=== PATIENT | female | born 1930 | race Caucasian/White ===

== ENCOUNTER 2016-07-30 19:39 | Emergency (ER) | payer MEDICARE ==
[~2016-07-30] VITALS: Ht 152.4 cm; Wt 49.4 kg
[~2016-07-30 19:39] MED LIST: ACHD5005 PO; ASPI81TA16 PO; CALC-140 PO; CIPR500T78 PO; HYDR-3729 PO; LYSI500T37 PO; OMG1KC PO
[2016-07-30] MEDS ORDERED: RT-ALBUTEROL/IPRATROPIUM 3 ML (DUONEB) VIAL ONE (19:42)
[2016-07-30 19:56] LABS: MEAN CORPUSCULAR VOLUME 90 FL (80-99); RED BLOOD COUNT 4.85 10^6/uL (4.35-5.85); WHITE BLOOD COUNT 9.3 10^3/uL (4.3-11.0)
[2016-07-30 19:57] LABS: BASOPHILS % (AUTO) 0 % (0-10); EOSINOPHILS # (AUTO) 0.4 10^3/uL (0.0-0.3); EOSINOPHILS % (AUTO) 4 % (0-10); LYMPHOCYTES # (AUTO) 3.4 X 10^3 (1.0-4.0); LYMPHOCYTES % (AUTO) 37 % (12-44); MEAN CORPUSCULAR HEMOGLOBIN 31 PG (25-34); MEAN CORPUSCULAR HGB CONC 35 G/DL (32-36); MEAN PLATELET VOLUME 9.4 FL (7.4-10.4); MONOCYTES # (AUTO) 1.3 X 10^3 (0.0-1.0); MONOCYTES % (AUTO) 14 % (0-12); NEUTROPHILS # (AUTO) 4.2 X 10^3 (1.8-7.8); NEUTROPHILS % (AUTO) 45 % (42-75); PLATELET COUNT 290 10^3/uL (130-400); RED CELL DISTRIBUTION WIDTH 12.4 % (10.0-14.5)
[2016-07-30 20:00] LABS: PROTHROMBIN TIME PATIENT 12.5 SEC (12.2-14.7)
[2016-07-30] MEDS ORDERED: RT-ALBUTEROL/IPRATROPIUM 3 ML (DUONEB) VIAL INH ONE (20:00)
[2016-07-30 20:11] LABS: ALANINE AMINOTRANSFERASE 18 U/L (0-55); ALBUMIN 4.3 G/DL (3.2-4.5); ANION GAP 11 MMOL/L (5-14); ASPARTATE AMINO TRANSFERASE 24 U/L (5-34); BILIRUBIN,TOTAL 0.3 MG/DL (0.1-1.0); BLOOD UREA NITROGEN 14 MG/DL (7-18); BUN/CREATININE RATIO 19; CALCIUM 9.3 MG/DL (8.5-10.1); CARBON DIOXIDE 26 MMOL/L (21-32); CHLORIDE 105 MMOL/L (98-107); CREATINE KINASE 89 U/L (29-168); CREATININE SERUM 0.75 MG/DL (0.60-1.30); GFR ESTIMATED > 60; GLUCOSE 102 MG/DL (70-105); MAGNESIUM 2.3 MG/DL (1.8-2.4); POTASSIUM 4.3 MMOL/L (3.6-5.0); SODIUM 142 MMOL/L (135-145); TOTAL PROTEIN 7.4 G/DL (6.4-8.2)
[2016-07-30 20:13] LABS: BAND NEUTROPHILS 0 %; LYMPHOCYTES % (MANUAL) 39 %; NEUTROPHILS % (MANUAL) 47 %
[2016-07-30 20:14] LABS: BASOPHILS % (MANUAL) 0 %; EOSINOPHILS % (MANUAL) 5 %
[2016-07-30 20:18] LABS: TROPONIN I < 0.30 NG/ML (<0.30)
--- NOTE | 2016-07-30 20:33 | Diagnostic Imaging Report ---
INDICATION: Shortness of breath EXAMINATION: Chest 07/30/2016 COMPARISON: 06/08/2016 FINDINGS: The lungs are hyperinflated. There is a density in the right midlung peripherally consistent with calcified granuloma. The heart is slightly prominent. The pulmonary vasculature is unremarkable. No focal infiltrates or effusions are seen. There is no pneumothorax. IMPRESSION: 1. Chronic changes as described with findings of emphysematous disease noted. 2. Mild cardiomegaly. Dictated by: Dictated on workstation # [id number]
--- NOTE | 2016-07-30 20:53 | ED Respiratory ---
General Chief Complaint: Respiratory Problems Stated Complaint: SOA Nursing Triage Note: Pt to ER via POV with son. Reports went to lie down to sleep and suddenly felt SOA "could not get my breathe." Source: patient (VERY LIMITED HISTORIAN ABOUT PMH) History of Present Illness Time seen by provider: 19:45 Initial Comments PT C/O SHORTNESS OF BREATH WHEN SHE WAS LAYING DOWN AND TRYING TO GO TO SLEEP JUST PRIOR TO ARRIVAL HAS HAD A MILD NON-PRODUCTIVE COUGH, BUT STATES "NO WORSE THAN NORMAL" NO CHEST PAIN NO FEVER NO HEADACHE OR BODY ACHES NO KNOWN SICK CONTACTS PCP: DR. GURROLA Allergies and Home Medications Allergies Coded Allergies: No Known Drug Allergies (Verified , 12/17/15) Home Medications Cefdinir 300 Mg Capsule #20 300 MG PO BID Prescribed by: JENNIFER RESENDIZ on 07/30/162112 [place] 3 Polyunsat Fatty Acids 1,000 Mg Cap 1,000 MG PO DAILY (Reported) Constitutional: no symptoms reported EENTM: no symptoms reported Respiratory: see HPI cough orthopnea short of breath Cardiovascular: no symptoms reportedNo chest pain, No edema Gastrointestinal: no symptoms reported Genitourinary: no symptoms reported Musculoskeletal: no symptoms reported Skin: no symptoms reported Psychiatric/Neurological: No Symptoms Reported Hematologic/Lymphatic: No Symptoms Reported Immunological/Allergic: no symptoms reported Past Vjygkie-Nhcmzk-Plzoor Hx Patient Social History Alcohol Use: Denies Use Recreational Drug Use: No Smoking Status: Never a Smoker Recent Foreign Travel: No Contact w/Someone Who Travel: No Recent Infectious Disease Expo: No Recent Hopitalizations: No Physical Abuse Screen: No Sexual Abuse: No Immunizations Up To Date Date of Pneumonia Vaccine: Apr 10, 2015 Date of Influenza Vaccine: Apr 10, 2016 Seasonal Allergies Seasonal Allergies: No Surgeries HX Surgeries: Yes (RIGHT HEMICOLECTOMY AND SMALL BOWEL RESECTION FOR COLON CANCER; COLONOSOCPIES PER OLD CHART; PT HAS NO IDEA WHAT SURGERIES SHE HAS HAD OR WHAT FOR) Surgeries: Abdominal, Bowel Surgery Respiratory Hx Respiratory Disorders: No Cardiovascular Hx Cardiac Disorders: No Neurological Hx Neurological Disorders: No Reproductive System Hx Reproductive Disorders: No Sexually Transmitted Disease: No HIV/AIDS: No Genitourinary Hx Genitourinary Disorders: No Gastrointestinal Hx Gastrointestinal Disorders: Yes (HX COLON CA) Musculoskeletal Hx Musculoskeletal Disorders: No Endocrine Hx Endocrine Disorders: No HEENT HX ENT Disorders: Yes (wears glasses) HEENT Disorders: Cataract Cancer Hx Cancer: Yes (PT STATES SHE HAS HAD CANCER, BUT HAS ABSOLUTELY NO IDEA WHAT KIND OF CANCER SHE HAS HAD OR WHAT KIND OF SURGERY SHE HAD OR IF SHE HAD ANY OTHER TREATMENT FOR IT. COLON CANCER LISTED ON PRIOR RECORD. ) Cancer: Colon Psychosocial Hx Psychiatric Problems: No Integumentary HX Skin/Integumentary Disorder: No Blood Transfusions Hx Blood Disorders: No Family Medical History Family Medial History: Cardiovascular disease 19 MOTHER G8 BROTHER G8 SISTER Hypertension 19 FATHER 19 MOTHER G8 BROTHER G8 SISTER Respiratory disorder G8 BROTHER Physical Exam Vital Signs Vital Sign - Last 12Hours 07/30/16 07/30/16 07/30/16 19:40 19:41 21:20 Temp 97.2 Pulse 89 Resp 24 B/P 186/79 Pulse Ox 92 O2 Delivery Room Air O2 Flow Rate 2 FiO2 98 Capillary Refill : Less Than 3 Seconds General Appearance: WD/WN no apparent distress HEENT: PERRL/EOMI normal ENT inspection TMs normal pharynx normal Neck: non-tender full range of motion supple normal inspection Respiratory: no respiratory distress no accessory muscle use decreased breath sounds (IN RIGHT BASE) Cardiovascular: regular rate, rhythm no edema no JVD no murmur Gastrointestinal: normal bowel sounds non tender soft Extremities: normal inspection no pedal edema normal capillary refill Neurologic/Psychiatric: 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-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 nml as tested no motor/sensory deficits alert normal mood/affect oriented x 3 Skin: normal color warm/dry Progress/Results/Core Measures Results/Orders Lab Results Laboratory Tests Test 07/30/16 19:45 07/30/16 20:00 Range/Units Activated Partial Thromboplast Time 35 24-35 SEC Alanine Aminotransferase (ALT/SGPT) 18 0-55 U/L Albumin 4.3 3.2-4.5 G/DL Alkaline Phosphatase 65 40-136 U/L Anion Gap 11 5-14 MMOL/L Aspartate Amino Transf (AST/SGOT) 24 5-34 U/L B-Type Natriuretic Peptide 81.9 <100.0 PG/ML BUN/Creatinine Ratio 19 Band Neutrophils 0 % Basophils # (Auto) 0.0 0.0-0.1 10^3/uL Basophils % (Manual) 0 % Basophils (%) (Auto) 0 0-10 % Blood Morphology Comment NORMAL Blood Urea Nitrogen 14 7-18 MG/DL Calcium Level 9.3 8.5-10.1 MG/DL Carbon Dioxide Level 26 21-32 MMOL/L Chloride Level 105 98-107 MMOL/L Creatine Kinase MB 2.8 <6.6 NG/ML Creatinine 0.75 0.60-1.30 MG/DL Eosinophils # (Auto) 0.4 H 0.0-0.3 10^3/uL Eosinophils % (Manual) 5 % Eosinophils (%) (Auto) 4 0-10 % Estimat Glomerular Filtration Rate > 60 Glucose Level 102 70-105 MG/DL Hematocrit 43 35-52 % Hemoglobin 15.0 11.5-16.0 G/DL INR Comment 1.0 0.8-1.4 Lymphocytes # (Auto) 3.4 1.0-4.0 X 10^3 Lymphocytes % (Manual) 39 % Lymphocytes (%) (Auto) 37 12-44 % Magnesium Level 2.3 1.8-2.4 MG/DL Mean Corpuscular Hemoglobin 31 25-34 PG Mean Corpuscular Hemoglobin Concent 35 32-36 G/DL Mean Corpuscular Volume 90 80-99 FL Mean Platelet Volume 9.4 7.4-10.4 FL Monocytes # (Auto) 1.3 H 0.0-1.0 X 10^3 Monocytes % (Manual) 9 % Monocytes (%) (Auto) 14 H 0-12 % Neutrophils # (Auto) 4.2 1.8-7.8 X 10^3 Neutrophils % (Manual) 47 % Neutrophils (%) (Auto) 45 42-75 % Platelet Count 290 130-400 10^3/uL Potassium Level 4.3 3.6-5.0 MMOL/L Prothrombin Time 12.5 12.2-14.7 SEC Red Blood Count 4.85 4.35-5.85 10^6/uL Red Cell Distribution Width 12.4 10.0-14.5 % Sodium Level 142 135-145 MMOL/L Total Bilirubin 0.3 0.1-1.0 MG/DL Total Creatine Kinase 89 29-168 U/L Total Protein 7.4 6.4-8.2 G/DL Troponin I < 0.30 <0.30 NG/ML White Blood Count 9.3 4.3-11.0 10^3/uL Lactic Acid Level 1.0 0.5-2.0 MMOL/L Micro Results Microbiology 07/30/16 Influenza Types A,B Antigen (ERUM) - Final, Complete My Orders Orders-MITCH RESENDIZA Dania DO O2 (07/30/16 19:47) Cbc And Manual Diff (07/30/16 19:47) Comprehensive Metabolic Panel (07/30/16 19:47) Blood Culture (07/30/16 19:47) Monitor-Rhythm Ecg Trace Only (07/30/16 19:47) BNP (07/30/16 19:47) Creatine Kinase (07/30/16 19:47) Creatine Kinase Mb (07/30/16 19:47) Lactic Acid Analyzer (07/30/16 19:47) Magnesium (07/30/16 19:47) Protime With Inr (07/30/16 19:47) Partial Thromboplastin Time (07/30/16 19:47) Troponin I (07/30/16 19:47) Influenza A And B Antigens (07/30/16 19:47) Chest 1 View, Ap/Pa Only (07/30/16 19:47) Albuterol/Ipra Inhalation Soln (Duoneb I (07/30/16 20:00) Rt Request For Service (07/30/16 19:47) Svn Sm Volume Nebulizer Rt-Rfs (07/30/16 19:47) Albuterol/Ipra Inhalation Soln (Duoneb I (07/30/16 19:42) Ceftriaxone Injection (Rocephin Injectio (07/30/16 21:15) Rx-Albuterol Inhaler (Rx-Ventolin Hfa) (07/30/16 21:06) Rt Request For Service (07/30/16 21:07) Rx-Albuterol Inhaler (Rx-Proair) (07/30/16 21:10) Medications Given in ED Current Medications Medications Dose Ordered Sig/Katie Route Start Time Stop Time Status Last Admin Dose Admin Albuterol Sulfate 8 gm STK-MED ONCE IH 07/30/16 21:10 07/30/16 21:18 DC 07/30/16 21:31 8 GM Albuterol/ Ipratropium 3 ml 3 ml STK-MED ONCE .ROUTE 07/30/16 19:42 07/30/16 19:51 DC 07/30/16 19:55 3 ML Ceftriaxone Sodium/Sodium Chloride 50 ml @ 100 mls/hr ONCE ONCE IV 07/30/16 21:15 07/30/16 21:44 DC 07/30/16 21:31 100 MLS/HR Vital Signs/I&O Vital Sign - Last 12Hours 07/30/16 07/30/16 07/30/16 07/30/16 19:40 19:41 19:50 21:20 Temp 97.2 Pulse 89 Resp 24 B/P 186/79 Pulse Ox 92 99 O2 Delivery Room Air Nasal Cannula Nasal Cannula Nasal Cannula O2 Flow Rate 2 2 2 FiO2 98 Blood Pressure Mean: 114 Progress Note : Progress Note STATES SHE IS MUCH BETTER AFTER NEBULIZER TREATMENT EXAM--NOW HAS RALES IN RLL, WITH INCREASED AERATION IN ALL LUNG EMANUEL NO COUGH NOTED AT ANY TIME PT FEELS COMFORTABLE GOING HOME Diagnostic Imaging Comments CXR--CHRONIC CHANGES, NO ACUTE PROCESS--PER RADIOLOGIST REPORT @ 2048 Reviewed: Reviewed by Me Departure Impression Impression: Primary Impression: Acute bronchitis Additional Impression: POSSIBLE PNEUMONIA Disposition: HOME, SELF-CARE Condition: Improved Departure-Patient Inst. Referrals: LUIS BAILON MD (PCP) Primary Care Physician Patient Instructions: Acute Bronchitis, Adult (DC) Add. Discharge Instructions: ROBITUSSIN DM FOR COUGH TYLENOL AND MOTRIN NEEDED FOR PAIN OR FEVER USE INHALER WITH SPACER EVERY 4 HOURS NEEDED FOR BREATHING FOLLOW UP WITH DR. GURROLA ON TUESDAY RETURN TO ER IF WORSE All discharge instructions reviewed with patient and/or family. Voiced understanding. Scripts Cefdinir 300 Mg Recaxiw634 Mg PO BID FOR INFECTION #20 CAP Prov:JENNIFER RESENDIZ DO 07/30/16 JENNIFER RESENDIZ DO Jul 30, 2016 20:53
[2016-07-30] MEDS ORDERED: RX-ALBUTEROL INHALER (VENTOLIN HFA) 18 GM IH STA (21:06)
[2016-07-30] MEDS ORDERED: RX-ALBUTEROL INHALER (PROAIR) 8 GM IH ONE (21:10)
[2016-07-30] MEDS ORDERED: CEFD300C3 PO (21:13)
[2016-07-30] MEDS ORDERED: cefTRIAXone INJECTION 1,000 MG in NORMAL SALINE (BAXTER MINI) 50 ML IV ONE (21:15)
[2016-07-30 21:48] VITALS: BP 172/73
== END 2016-07-30 21:48 | disposition home or self-care (01) ==
LOC: EDUNIT# 19:39 → ER 19:40
DX: J20.9 Acute bronchitis, unspecified (principal); Z85.038 Personal history of other malignant neoplasm of large intestine
CPT/HCPCS: 36415; 71010; 80053; 82550; 82553; 83605; 83735; 83880; 84484; 85007; 85027; 85610; 85730; 87040; 87804; 93041; 94640; 94664; 96374

== ENCOUNTER 2017-04-29 20:27 | Emergency (ER) | payer MEDICARE ==
[~2017-04-29] VITALS: Ht 152.4 cm; Wt 49.4 kg
[~2017-04-29 20:27] MED LIST changes: +CEFD300C3 PO
[2017-04-29] MEDS ORDERED: RT-ALBUTEROL/IPRATROPIUM 3 ML (DUONEB) VIAL INH ONE (20:45)
[2017-04-29] MEDS ORDERED: methylPREDNISolone 125 MG (Solu-MEDROL) VIAL IVP ONE (20:45)
[2017-04-29 20:49] LABS: BASOPHILS % (AUTO) 0 % (0-10); EOSINOPHILS # (AUTO) 0.4 10^3/uL (0.0-0.3); EOSINOPHILS % (AUTO) 4 % (0-10); LYMPHOCYTES # (AUTO) 4.6 X 10^3 (1.0-4.0); LYMPHOCYTES % (AUTO) 54 % (12-44); MEAN CORPUSCULAR HEMOGLOBIN 30 PG (25-34); MEAN CORPUSCULAR HGB CONC 33 G/DL (32-36); MEAN CORPUSCULAR VOLUME 89 FL (80-99); MEAN PLATELET VOLUME 9.5 FL (7.4-10.4); MONOCYTES % (AUTO) 12 % (0-12); NEUTROPHILS # (AUTO) 2.6 X 10^3 (1.8-7.8); NEUTROPHILS % (AUTO) 30 % (42-75); PLATELET COUNT 267 10^3/uL (130-400); RED BLOOD COUNT 4.71 10^6/uL (4.35-5.85); RED CELL DISTRIBUTION WIDTH 12.5 % (10.0-14.5); WHITE BLOOD COUNT 8.6 10^3/uL (4.3-11.0)
[2017-04-29 21:02] LABS: PROTHROMBIN TIME PATIENT 13.2 SEC (12.2-14.7)
[2017-04-29 21:10] LABS: ALANINE AMINOTRANSFERASE 19 U/L (0-55); ALBUMIN 4.1 GM/DL (3.2-4.5); ANION GAP 10 MMOL/L (5-14); ASPARTATE AMINO TRANSFERASE 23 U/L (5-34); BILIRUBIN,TOTAL 0.6 MG/DL (0.1-1.0); BLOOD UREA NITROGEN 17 MG/DL (7-18); BUN/CREATININE RATIO 22; CALCIUM 9.3 MG/DL (8.5-10.1); CARBON DIOXIDE 26 MMOL/L (21-32); CHLORIDE 104 MMOL/L (98-107); CREATINE KINASE 84 U/L (29-168); CREATININE SERUM 0.76 MG/DL (0.60-1.30); GFR ESTIMATED > 60; GLUCOSE 112 MG/DL (70-105); MAGNESIUM 2.1 MG/DL (1.8-2.4); POTASSIUM 3.9 MMOL/L (3.6-5.0); SODIUM 140 MMOL/L (135-145); TOTAL PROTEIN 7.3 GM/DL (6.4-8.2)
[2017-04-29 21:17] LABS: TROPONIN I < 0.30 NG/ML (<0.30)
--- NOTE | 2017-04-29 21:41 | Diagnostic Imaging Report ---
INDICATION: Shortness of breath. TECHNIQUE: Single view chest 9:07 PM. CORRELATION STUDY: 07/30/2016 FINDINGS: Heart size enlarged. Vasculature is within normal limits. Chronic, senescent type changes about the lung parenchyma. Likely areas of mild fibrosis. Calcified granuloma of the lateral right midlung. No infiltrate. IMPRESSION: 1. Chronic changes of the lung alvarenga. No acute cardiopulmonary abnormality. Borderline heart size without failure. Dictated by: Dictated on workstation # [id number]
--- NOTE | 2017-04-29 22:25 | ED Respiratory ---
General Chief Complaint: Respiratory Problems Stated Complaint: SOB Nursing Triage Note: PT BROUGHT IN BY [facility] WITH C/O SUDDEN ONSET SOA. SHE REPORTS SHE WAS TRYING TO MAKE MUFFINS THIS EVENING WHEN SHE BURNED THEM. HER HOUSE WAS FILLED WITH SMOKE, AND SHE STAYED IN THE HOUSE FOR APPROX 3 HOURS BREATHING THE SMOKE. PT DENIES ANY CP. Allergies and Home Medications Allergies Coded Allergies: No Known Drug Allergies (Verified , 12/17/15) Home Medications Cefdinir 300 Mg Capsule, 300 MG PO BID, #20 Prescribed by: JENNIFER RESENDIZ on 07/30/162112 [place] 3 Polyunsat Fatty Acids 1,000 Mg Cap, 1,000 MG PO DAILY, (Reported) Past Mcwaslj-Awljwj-Cusvio Hx Patient Social History Alcohol Use: Denies Use Recreational Drug Use: No Smoking Status: Never a Smoker 2nd Hand Smoke Exposure: No Recent Foreign Travel: No Contact w/Someone Who Travel: No Recent Infectious Disease Expo: No Recent Hopitalizations: No Physical Abuse: No Sexual Abuse: No Immunizations Up To Date Date of Pneumonia Vaccine: Apr 10, 2015 Date of Influenza Vaccine: Apr 10, 2016 Seasonal Allergies Seasonal Allergies: No Surgeries History of Surgeries: Yes Surgeries: Abdominal, Bowel Surgery Respiratory History of Respiratory Disorde: No Cardiovascular History of Cardiac Disorders: No Neurological History of Neurological Disord: No Reproductive System Hx Reproductive Disorders: No Sexually Transmitted Disease: No HIV/AIDS: No Gastrointestinal History of Gastrointestinal Di: Yes (HX COLON CA) Musculoskeletal History of Musculoskeletal Dis: No Endocrine History of Endocrine Disorders: No HEENT HEENT Disorders: Cataract Cancer History of Cancer: Yes Cancer: Colon Psychosocial History of Psychiatric Problem: No Suicide Risk Score: 0 Integumentary History of Skin or Integumenta: No Blood Transfusions History of Blood Disorders: No Family Medical History Family Medial History: Cardiovascular disease 19 MOTHER G8 BROTHER G8 SISTER Hypertension 19 FATHER 19 MOTHER G8 BROTHER G8 SISTER Respiratory disorder G8 BROTHER Physical Exam Vital Signs Vital Sign - Last 12Hours 04/29/17 20:27 Temp 97.9 Pulse 79 Resp 19 B/P (MAP) 110/54 Pulse Ox 97 O2 Delivery Room Air Capillary Refill : Less Than 3 Seconds Progress/Results/Core Measures Results/Orders Lab Results Laboratory Tests Test 04/29/17 20:26 04/29/17 20:36 Range/Units White Blood Count 8.6 4.3-11.0 10^3/uL Red Blood Count 4.71 4.35-5.85 10^6/uL Hemoglobin 14.0 11.5-16.0 G/DL Hematocrit 42 35-52 % Mean Corpuscular Volume 89 80-99 FL Mean Corpuscular Hemoglobin 30 25-34 PG Mean Corpuscular Hemoglobin Concent 33 32-36 G/DL Red Cell Distribution Width 12.5 10.0-14.5 % Platelet Count 267 130-400 10^3/uL Mean Platelet Volume 9.5 7.4-10.4 FL Neutrophils (%) (Auto) 30 L 42-75 % Lymphocytes (%) (Auto) 54 H 12-44 % Monocytes (%) (Auto) 12 0-12 % Eosinophils (%) (Auto) 4 0-10 % Basophils (%) (Auto) 0 0-10 % Neutrophils # (Auto) 2.6 1.8-7.8 X 10^3 Lymphocytes # (Auto) 4.6 H 1.0-4.0 X 10^3 Monocytes # (Auto) 1.0 0.0-1.0 X 10^3 Eosinophils # (Auto) 0.4 H 0.0-0.3 10^3/uL Basophils # (Auto) 0.0 0.0-0.1 10^3/uL Prothrombin Time 13.2 12.2-14.7 SEC INR Comment 1.0 0.8-1.4 Activated Partial Thromboplast Time 30 24-35 SEC Sodium Level 140 135-145 MMOL/L Potassium Level 3.9 3.6-5.0 MMOL/L Chloride Level 104 98-107 MMOL/L Carbon Dioxide Level 26 21-32 MMOL/L Anion Gap 10 5-14 MMOL/L Blood Urea Nitrogen 17 7-18 MG/DL Creatinine 0.76 0.60-1.30 MG/DL Estimat Glomerular Filtration Rate > 60 BUN/Creatinine Ratio 22 Glucose Level 112 H 70-105 MG/DL Calcium Level 9.3 8.5-10.1 MG/DL Magnesium Level 2.1 1.8-2.4 MG/DL Total Bilirubin 0.6 0.1-1.0 MG/DL Aspartate Amino Transf (AST/SGOT) 23 5-34 U/L Alanine Aminotransferase (ALT/SGPT) 19 0-55 U/L Alkaline Phosphatase 56 40-136 U/L Total Creatine Kinase 84 29-168 U/L Creatine Kinase MB 2.0 <6.6 NG/ML Troponin I < 0.30 <0.30 NG/ML B-Type Natriuretic Peptide 74.0 <100.0 PG/ML Total Protein 7.3 6.4-8.2 GM/DL Albumin 4.1 3.2-4.5 GM/DL My Orders Orders - JENNIFER RESENDIZ DO Saline Lock/Iv-Start (04/29/17 20:39) Ekg Tracing (04/29/17 20:39) O2 (04/29/17 20:39) Monitor-Rhythm Ecg Trace Only (04/29/17 20:39) BNP (04/29/17 20:39) Cbc With Automated Diff (04/29/17 20:39) Protime With Inr (04/29/17 20:39) Partial Thromboplastin Time (04/29/17 20:39) Chest 1 View, Ap/Pa Only (04/29/17 20:39) Albuterol/Ipra Inhalation Soln (Duoneb I (04/29/17 20:45) Rt Request For Service (04/29/17 20:39) Svn Sm Volume Nebulizer Rt-Rfs (04/29/17 20:39) Methylprednisolone Sod Succ (Solu-Medrol (04/29/17 20:45) Creatine Kinase (04/29/17 20:49) Creatine Kinase Mb (04/29/17 20:49) Comprehensive Metabolic Panel (04/29/17 20:49) Magnesium (04/29/17 20:49) Troponin I (04/29/17 20:49) Medications Given in ED Current Medications Medications Dose Ordered Sig/Katie Route Start Time Stop Time Status Last Admin Dose Admin Albuterol/ Ipratropium 3 ml ONCE ONCE INH 04/29/17 20:45 04/29/17 20:46 DC 04/29/17 20:45 3 ML Methylprednisolone Sodium Succinate 125 mg ONCE ONCE IVP 04/29/17 20:45 04/29/17 20:46 DC 04/29/17 21:15 125 MG Vital Signs/I&O Vital Sign - Last 12Hours 04/29/17 04/29/17 20:27 20:45 Temp 97.9 Pulse 79 Resp 19 B/P (MAP) 110/54 Pulse Ox 97 96 O2 Delivery Room Air Room Air Blood Pressure Mean: 72 Departure Impression Impression: Primary Impression: DYSPNEA AND BRONCHOSPASM DUE TO SMOKE INHALATION Disposition: HOME, SELF-CARE Condition: Stable Departure-Patient Inst. Referrals: JODEE GURROLA DO (PCP/Family) Primary Care Physician Patient Instructions: BRONCHOSPASM-ADULT, Smoke Inhalation (DC) Add. Discharge Instructions: DO NOT RETURN TO YOUR HOME UNTIL ALL TRACES OF SMOKE ARE GONE FOLLOW UP WITH DR. GURROLA ON TUESDAY FOR FURTHER CARE RETURN TO ER IF WORSE All discharge instructions reviewed with patient and/or family. Voiced understanding. JENNIFER RESENDIZ DO Apr 29, 2017 22:25
[2017-04-29 22:45] VITALS: BP 110/54
== END 2017-04-29 22:45 | disposition home or self-care (01) ==
LOC: ER 20:27 → EDUNIT# 20:27 → ER 22:45
DX: J68.9 Unspecified respiratory condition due to chemicals, gases, fumes and vapors (principal); J98.01 Acute bronchospasm; Z85.038 Personal history of other malignant neoplasm of large intestine; Z82.49 Family history of ischemic heart disease and other diseases of the circulatory system
CPT/HCPCS: 36415; 71010; 80053; 82550; 82553; 83735; 83880; 84484; 85025; 85610; 85730; 93005; 93041; 94640; 96374

== ENCOUNTER → 2017-06-30 | Outpatient (CLI) | payer MEDICARE ==
--- NOTE | 2017-06-30 10:28 | Diagnostic Imaging Report ---
INDICATION: Shortness of breath. EXAMINATION: PA and lateral chest obtained at 10:14 a.m. and compared with 04/29/2017. FINDINGS: Heart is normal in size. There is hyperinflation compatible with COPD. There is no focal infiltrate or pneumothorax or pleural fluid. There is a stable calcified granuloma in the right midlung. IMPRESSION: COPD changes. No focal infiltrate or pneumothorax or pleural fluid. Dictated by: Dictated on workstation # [id number]
== END ==
LOC: RAD 09:43
PROVIDERS: ATTEND Nurse Practitioner Family
DX: J44.9 Chronic obstructive pulmonary disease, unspecified (principal)
CPT/HCPCS: 71020

== ENCOUNTER 2018-08-22 10:31 | Observation (INO) | payer MEDICARE ==
[~2018-08-22] VITALS: Ht 152.4 cm; Wt 49.4 kg
--- OUTSIDE RECORDS SUMMARY | 2018-08-22 10:38 | XMS REPORT | Continuity of Care Document ---
Author Author [facility] Organization [facility] Address Unknown Phone Unavailable Allergies Active Description Code Type Severity Reaction Onset Reported/Identified Relationship to Patient Clinical Status Yes No Known Drug Allergies [id number] Drug Allergy Unknown N/A 12/17/2015 Medications There is no data. Problems Date Dx Coded Attending Type Code Diagnosis Diagnosed By 05/18/2013 ISIDORO CANTRELL Ot 826.0 FX PHALANX, FOOT-CLOSED 05/18/2013 ISIDORO CANTRELL Ot 924.20 CONTUSION OF FOOT 05/18/2013 ISIDORO CANTRELL Ot 959.7 LOWER LEG INJURY NOS 05/18/2013 ISIDORO CANTRELL Ot E000.8 OTHER EXTERNAL CAUSE STATUS 05/18/2013 ISIDORO CANTRELL Ot E849.0 ACCIDENT IN HOME 05/18/2013 ISIDORO CANTRELL Ot E916 STRUCK BY FALLING OBJECT 12/06/2014 DANIEL CABA MD Ot 153.4 12/06/2014 ROSALES PONCE, DANIEL Ot 197.4 12/06/2014 ROSALES PONCE, DANIEL Ot 197.6 12/06/2014 ROSALES PONCE, DANIEL Ot 285.9 12/06/2014 ROSALES PONCE, DANIEL Ot 287.49 12/06/2014 ROSALES PONCE, DANIEL Ot V10.44 12/06/2014 ROSALES PONCE, DANIEL Ot 153.4 12/06/2014 ROSALES PONCE, ERICKI Ot 197.4 12/06/2014 ROSALES PONCE, ERICKI Ot 197.6 12/06/2014 ROSALES PONCE, DANIEL Ot 285.9 12/06/2014 ROSALES PONCE, DERECKAABÁRBARA Ot 287.49 12/06/2014 ROSALES PONCE, DERECKAAKI Ot V10.44 12/09/2014 DANIEL CABA MD Ot 153.4 12/09/2014 DANIEL CABA MD Ot 197.4 12/09/2014 ROSALES PONCE, DANIEL Ot 197.6 12/09/2014 ROSALES PONCE, DANIEL Ot 285.9 12/09/2014 ROSALES PONCE, DANIEL Ot 287.49 12/09/2014 ROSALES PONCE, DANIEL Ot V10.44 12/09/2014 ROSALES PONCE, DANIEL Ot 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 12/09/2014 ROSALES PONCE, DANIEL Ot 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 12/09/2014 ROSALES PONCE, DANIEL Ot 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 12/09/2014 ROSALES PONCE, DANIEL Ot 285.9 ANEMIA NOS 12/09/2014 ROSALES PONCE, DANIEL Ot 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 12/09/2014 ROSALES PONCE, DANIEL Ot 401.9 HYPERTENSION NOS 12/09/2014 ROSALES PONCE, DANIEL Ot 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 12/23/2014 ROSALES PONCE, DANIEL Ot 569.9 12/23/2014 ROSALES PONCE, DANIEL Ot 791.9 12/23/2014 ROSALES PONCE, DANIEL Ot V72.63 12/23/2014 ROSALES PONCE, ERICKI Ot V72.83 12/23/2014 ROSALES PONCE, DANIEL Ot V74.8 01/13/2015 SHANIQUE OPNCE, KRISTINA K Ot 153.4 01/13/2015 SHANIQUE PONCE, KRISTINA K Ot 238.71 01/13/2015 SHANIQUE PONCE, KRISTINA K Ot 280.9 01/13/2015 SHANIQUE PONCE, KRISTINA K Ot 515 01/13/2015 SHANIQUE PONCE, KRISTINA K Ot V12.01 01/13/2015 SHANIQUE PONCE, KRISTINA K Ot V58.69 01/23/2015 SHANIQUE PONCE, KRISTINA K Ot 153.4 01/23/2015 SHANIQUE PONCE, KRISTINA K Ot 238.71 01/23/2015 SHANIQUE PONCE, KRISTINA K Ot 280.9 01/23/2015 SHANIQUE PONCE, KRISTINA K Ot 515 01/23/2015 SHANIQUE PONCE, KRISTINA K Ot V12.01 01/23/2015 SHANIQUE PONCE, KRISTINA K Ot V58.69 03/24/2015 SHANIQUE PONCE, KRISTINA K Ot 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 03/24/2015 SHANIQUE PONCE, KRISTINA K Ot 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 03/24/2015 KRISTINA BAY MD Ot 280.9 IRON DEFIC ANEMIA NOS 03/24/2015 SHANIQUE PONCE, KRISTINA Najera Ot 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 03/24/2015 KRISTINA BAY MD Ot V12.01 PERSONAL HISTORY OF TUBERCULOSIS 03/24/2015 KRISTINA BAY MD Ot V58.69 OTH MED,LT,CURRENT USE 12/16/2015 DANIEL CABA MD, Ot Z01.818 ENCOUNTER FOR OTHER PREPROCEDURAL EXAMIN 12/16/2015 DANIEL CABA MD, Ot Z85.038 PERSONAL HISTORY OF MALIGNANT NEOPLASM O 12/17/2015 DANIEL CABA MD, Ot Z01.818 ENCOUNTER FOR OTHER PREPROCEDURAL EXAMIN 12/17/2015 DANIEL CABA MD, Ot Z85.038 PERSONAL HISTORY OF MALIGNANT NEOPLASM O 12/17/2015 KRISTINA BAY MD Ot 153.4 12/17/2015 KRISTINA BAY MD Ot 238.71 12/17/2015 KRISTINA BAY MD Ot 280.9 12/17/2015 SHANIQUE PONCE KRISTINA Dania Ot 515 12/17/2015 SHANIQUE PONCE KRISTINA Dania Ot V12.01 12/17/2015 SHANIQUE PONCE KRISTINA Dania Ot V58.69 12/17/2015 DANIEL CABA MD, Ot K57.90 DVRTCLOS OF INTEST, PART UNSP, W/O PERF 12/17/2015 DANIEL CABA MD, Ot K64.1 SECOND DEGREE HEMORRHOIDS 12/17/2015 DANIEL CABA MD, Ot Z08 ENCNTR FOR FOLLOW-UP EXAM AFTER TRTMT FO 12/17/2015 DANIEL CABA MD, Ot Z85.038 PERSONAL HISTORY OF MALIGNANT NEOPLASM O 12/23/2015 DANIEL CABA MD, Ot K57.90 DVRTCLOS OF INTEST, PART UNSP, W/O PERF 12/23/2015 DANIEL CABA MD, Ot K64.1 SECOND DEGREE HEMORRHOIDS 12/23/2015 DANIEL CABA MD, Ot Z08 ENCNTR FOR FOLLOW-UP EXAM AFTER TRTMT FO 12/23/2015 DANIEL CABA MD, Ot Z85.038 PERSONAL HISTORY OF MALIGNANT NEOPLASM O 06/08/2016 Ot 789.00 ABDOMINAL PAIN, UNSPECIFIED SITE 06/08/2016 Ot 959.12 OTH INJURY OF ABDOMEN 06/08/2016 Ot E000.8 OTHER EXTERNAL CAUSE STATUS 06/08/2016 Ot E849.0 ACCIDENT IN HOME 06/08/2016 Ot E888.9 FALL NOS 06/08/2016 DANIEL CABA MD Ot 569.9 INTESTINAL DISORDER NOS 06/08/2016 DANIEL CABA MD Ot 791.9 ABN URINE FINDINGS NEC 06/08/2016 DANIEL CABA MD Ot V72.63 PRE-PROCEDURAL LABORATORY EXAMINATION 06/08/2016 DANIEL CABA MD Ot V72.83 EXAM PRE-OPERATIVE NEC 06/08/2016 DANIEL CABA MD Ot V74.8 SCREEN-BACTERIAL DIS NEC 06/08/2016 SHANIQUE PONCE, KRISTINA Najera Ot 153.4 06/08/2016 SHANIQUE PONCE, KRISTINA Najera Ot 238.71 06/08/2016 SHANIQUE PONCE, KRISTINA Najera Ot 280.9 06/08/2016 SHANIQUE PONCE, KRISTINA Najera Ot 515 06/08/2016 SHANIQUE PONCE, KRISTINA Dania Ot V12.01 06/08/2016 SHANIQUE PONCE, KRISTINA Dania Ot V58.69 06/09/2016 DENIS CHAWLA MANAGER FLEET Ot R07.9 CHEST PAIN, UNSPECIFIED 06/17/2016 DENIS CHAWLA MANAGER FLEET Ot R07.9 CHEST PAIN, UNSPECIFIED 07/30/2016 JENNIFER RESENDIZ DO Ot J20.9 ACUTE BRONCHITIS, UNSPECIFIED 07/30/2016 JENNIFER RESENDIZ DO Ot R06.02 SHORTNESS OF BREATH 07/30/2016 JENNIFER RESENDIZ DO Ot Z85.038 PERSONAL HISTORY OF MALIGNANT NEOPLASM O 08/02/2016 JENNIFER RESENDIZ DO Ot J20.9 ACUTE BRONCHITIS, UNSPECIFIED 08/02/2016 JENNIFER RESENDIZ DO Ot R06.02 SHORTNESS OF BREATH 08/02/2016 JENNIFER RESENDIZ DO Ot Z85.038 PERSONAL HISTORY OF MALIGNANT NEOPLASM O 04/29/2017 JENNIFER RESENDIZ DO Ot J68.9 UNSP RESP COND DUE TO CHEMICALS, GASES, 04/29/2017 JENNIFER RESENDIZ DO Ot J98.01 ACUTE BRONCHOSPASM 04/29/2017 JENNIFER RESENDIZ DO Ot R06.02 SHORTNESS OF BREATH 04/29/2017 JENNIFER RESENDIZ DO Ot Z82.49 FAMILY HX OF ISCHEM HEART DIS AND OTH DI 04/29/2017 JENNIFER RESENDIZ DO Ot Z85.038 PERSONAL HISTORY OF MALIGNANT NEOPLASM O 05/02/2017 JENNIFER RESENDIZ DO Ot J68.9 UNSP RESP COND DUE TO CHEMICALS, GASES, 05/02/2017 JENNIFER RESENDIZ DO Ot J98.01 ACUTE BRONCHOSPASM 05/02/2017 JENNIFER RESENDIZ DO Ot R06.02 SHORTNESS OF BREATH 05/02/2017 JENNIFER RESENDIZ DO Ot Z82.49 FAMILY HX OF ISCHEM HEART DIS AND OTH DI 05/02/2017 JENNIFER RESENDIZ DO Ot Z85.038 PERSONAL HISTORY OF MALIGNANT NEOPLASM O 07/13/2017 EDI CHANDLER APRN Ot J44.9 CHRONIC OBSTRUCTIVE PULMONARY DISEASE, U 11/04/2017 ROSALES PONCE, DANIEL Ot 569.9 INTESTINAL DISORDER NOS 11/04/2017 ROSALES PONCE, DANIEL Ot 791.9 ABN URINE FINDINGS NEC 11/04/2017 DANIEL CABA MD Ot V72.63 PRE-PROCEDURAL LABORATORY EXAMINATION 11/04/2017 DANIEL CABA MD Ot V72.83 EXAM PRE-OPERATIVE NEC 11/04/2017 ROSALES PONCE, DANIEL Ot V74.8 SCREEN-BACTERIAL DIS NEC 11/04/2017 SHANIQUE PONCE, KRISTINA Najera Ot 153.4 11/04/2017 SHANIQUE PONCE, KRISTINA Najera Ot 238.71 11/04/2017 SHANIQUE PONCE, KRISTINA Najera Ot 280.9 11/04/2017 SHANIQUE PONCE, KRISTINA Najera Ot 515 11/04/2017 SHANIQUE PONCE, KRISTINA Najera Ot V12.01 11/04/2017 SHANIQUE PONCE, KRISTINA Najera Ot V58.69 11/04/2017 DENIS CHAWLA MANAGER FLEET Ot R07.9 CHEST PAIN, UNSPECIFIED 11/04/2017 EDI CHANDLER APRN Ot J44.9 CHRONIC OBSTRUCTIVE PULMONARY DISEASE, U 11/09/2017 JODEE GURROLA DO S Ot I67.81 ACUTE CEREBROVASCULAR INSUFFICIENCY 11/09/2017 JODEE GURROLA DO S Ot I67.82 CEREBRAL ISCHEMIA 11/18/2017 JODEE GURROLA DO S Ot I67.81 ACUTE CEREBROVASCULAR INSUFFICIENCY 11/18/2017 JODEE GURROLA DO S Ot I67.82 CEREBRAL ISCHEMIA Procedures Code Description Performed By Performed On 38.93 VENOUS CATHETERIZATION NEC 12/05/2014 45.62 PART SM BOWEL RESECT NEC 12/05/2014 45.73 OPEN AND OTHER RIGHT HEMICOLECTOMY 12/05/2014 45.93 [id number] BOWEL NEC 12/05/2014 Results Test Result Range Serum or plasma troponin i.cardiac measurement (mass/volume) - 06/08/16 12:00 Serum or plasma troponin i.cardiac measurement (mass/volume) < ng/ mL <0.30 PT panel in platelet poor plasma by coagulation assay - 07/30/16 19:45 Prothrombin time (PT) in platelet poor plasma by coagulation assay 12.5 s 12.2-14.7 INR in platelet poor plasma or blood by coagulation assay 1.0 0.8-1.4 Activated partial thromboplastin time (aPTT) in platelet poor plasma bycoagulation assay - 07/30/16 19:45 Activated partial thromboplastin time (aPTT) in platelet poor plasma bycoagulation assay 35 s 24-35 Comprehensive metabolic panel - 07/30/16 19:45 Serum or plasma sodium measurement (moles/volume) 142 mmol/L 135-145 Serum or plasma potassium measurement (moles/volume) 4.3 mmol/L 3.6-5.0 Serum or plasma chloride measurement (moles/volume) 105 mmol/L 98-107 Carbon dioxide 26 mmol/L 21-32 Serum or plasma anion gap determination (moles/volume) 11 mmol/L 5-14 Serum or plasma urea nitrogen measurement (mass/volume) 14 mg/dL 7-18 Serum or plasma creatinine measurement (mass/volume) 0.75 mg/dL 0.60-1.30 Serum or plasma urea nitrogen/creatinine mass ratio 19 NRG Serum or plasma creatinine measurement with calculation of estimated glomerular filtration rate > NRG Serum or plasma glucose measurement (mass/volume) 102 mg/dL 70-105 Serum or plasma calcium measurement (mass/volume) 9.3 mg/dL 8.5-10.1 Serum or plasma total bilirubin measurement (mass/volume) 0.3 mg/dL 0.1-1.0 Serum or plasma alkaline phosphatase measurement (enzymatic activity/volume) 65 U/L 40-136 Serum or plasma aspartate aminotransferase measurement (enzymatic activity/ volume) 24 U/L 5-34 Serum or plasma alanine aminotransferase measurement (enzymatic activity/volume ) 18 U/L 0-55 Serum or plasma protein measurement (mass/volume) 7.4 g/dL 6.4-8.2 Serum or plasma albumin measurement (mass/volume) 4.3 g/dL 3.2-4.5 Magnesium - 07/30/16 19:45 Magnesium 2.3 mg/dL 1.8-2.4 Serum or plasma creatine kinase measurement (enzymatic activity/volume) - 07/30 19:45 Serum or plasma creatine kinase measurement (enzymatic activity/volume) 89 U/L 29-168 Blood CBC with ordered manual differential panel - 07/30/16 19:45 Blood leukocytes automated count (number/volume) 9.3 10*3/uL 4.3-11.0 Blood erythrocytes automated count (number/volume) 4.85 10*6/uL 4.35-5.85 Venous blood hemoglobin measurement (mass/volume) 15.0 g/dL 11.5-16.0 Blood hematocrit (volume fraction) 43 % 35-52 Automated erythrocyte mean corpuscular volume 90 [foz_us] 80-99 Automated erythrocyte mean corpuscular hemoglobin (mass per erythrocyte) 31 pg 25-34 Automated erythrocyte mean corpuscular hemoglobin concentration measurement ( mass/volume) 35 g/dL 32-36 Automated erythrocyte distribution width ratio 12.4 % 10.0-14.5 Automated blood platelet count (count/volume) 290 10*3/uL 130-400 Automated blood platelet mean volume measurement 9.4 [foz_us] 7.4-10.4 Automated blood neutrophils/100 leukocytes 45 % 42-75 Automated blood lymphocytes/100 leukocytes 37 % 12-44 Blood monocytes/100 leukocytes 9 % NRG Automated blood eosinophils/100 leukocytes 4 % 0-10 Automated blood basophils/100 leukocytes 0 % 0-10 Blood neutrophils automated count (number/volume) 4.2 10*3 1.8-7.8 Blood lymphocytes automated count (number/volume) 3.4 10*3 1.0-4.0 Blood monocytes automated count (number/volume) 1.3 10*3 0.0-1.0 Automated eosinophil count 0.4 10*3/uL 0.0-0.3 Automated blood basophil count (count/volume) 0.0 10*3/uL 0.0-0.1 Manual blood segmented neutrophils/100 leukocytes 47 % NRG Blood band neutrophils/100 leukocytes 0 % NR Manual blood lymphocytes/100 leukocytes 39 % NR Manual eosinophils/100 leukocytes in nose 5 % NR Manual blood basophils/100 leukocytes 0 % [facility] Blood erythrocyte morphology finding identification NORMAL NRG Serum or plasma creatine kinase MB measurement (enzymatic activity/volume) - 19:45 Serum or plasma creatine kinase MB measurement (enzymatic activity/volume) 2.8 ng/mL <6.6 Serum or plasma troponin i.cardiac measurement (mass/volume) - 07/30/16 19:45 Serum or plasma troponin i.cardiac measurement (mass/volume) < ng/ mL <0.30 Serum or plasma lithium measurement (moles/volume) - 07/30/16 19:45 BNP level 81.9 pg/mL <100.0 Influenza virus A and B antigen detection - 07/30/16 20:00 FLU RESULT NEGATIVE FOR INFLUENZA A AND B ANTIGENS BY IA [facility] Blood lactic acid measurement (moles/volume) - 07/30/16 20:00 Blood lactic acid measurement (moles/volume) 1.0 mmol/L 0.5-2.0 Bacterial blood culture - 07/30/16 20:00 QUANTITY OF GROWTH Isolated [facility] Bacterial blood culture [id number] [facility] Bacterial blood culture - 07/30/16 20:16 Bacterial blood culture [facility] Complete blood count (CBC) with automated white blood cell (WBC) differential - 04/29/17 20:26 Blood leukocytes automated count (number/volume) 8.6 10*3/uL 4.3-11.0 Blood erythrocytes automated count (number/volume) 4.71 10*6/uL 4.35-5.85 Venous blood hemoglobin measurement (mass/volume) 14.0 g/dL 11.5-16.0 Blood hematocrit (volume fraction) 42 % 35-52 Automated erythrocyte mean corpuscular volume 89 [foz_us] 80-99 Automated erythrocyte mean corpuscular hemoglobin (mass per erythrocyte) 30 pg 25-34 Automated erythrocyte mean corpuscular hemoglobin concentration measurement ( mass/volume) 33 g/dL 32-36 Automated erythrocyte distribution width ratio 12.5 % 10.0-14.5 Automated blood platelet count (count/volume) 267 10*3/uL 130-400 Automated blood platelet mean volume measurement 9.5 [foz_us] 7.4-10.4 Automated blood neutrophils/100 leukocytes 30 % 42-75 Automated blood lymphocytes/100 leukocytes 54 % 12-44 Blood monocytes/100 leukocytes 12 % 0-12 Automated blood eosinophils/100 leukocytes 4 % 0-10 Automated blood basophils/100 leukocytes 0 % 0-10 Blood neutrophils automated count (number/volume) 2.6 10*3 1.8-7.8 Blood lymphocytes automated count (number/volume) 4.6 10*3 1.0-4.0 Blood monocytes automated count (number/volume) 1.0 10*3 0.0-1.0 Automated eosinophil count 0.4 10*3/uL 0.0-0.3 Automated blood basophil count (count/volume) 0.0 10*3/uL 0.0-0.1 PT panel in platelet poor plasma by coagulation assay - 04/29/17 20:36 Prothrombin time (PT) in platelet poor plasma by coagulation assay 13.2 s 12.2-14.7 INR in platelet poor plasma or blood by coagulation assay 1.0 0.8-1.4 Activated partial thromboplastin time (aPTT) in platelet poor plasma bycoagulation assay - 04/29/17 20:36 Activated partial thromboplastin time (aPTT) in platelet poor plasma bycoagulation assay 30 s 24-35 Comprehensive metabolic panel - 04/29/17 20:36 Serum or plasma sodium measurement (moles/volume) 140 mmol/L 135-145 Serum or plasma potassium measurement (moles/volume) 3.9 mmol/L 3.6-5.0 Serum or plasma chloride measurement (moles/volume) 104 mmol/L 98-107 Carbon dioxide 26 mmol/L 21-32 Serum or plasma anion gap determination (moles/volume) 10 mmol/L 5-14 Serum or plasma urea nitrogen measurement (mass/volume) 17 mg/dL 7-18 Serum or plasma creatinine measurement (mass/volume) 0.76 mg/dL 0.60-1.30 Serum or plasma urea nitrogen/creatinine mass ratio 22 NRG Serum or plasma creatinine measurement with calculation of estimated glomerular filtration rate > NRG Serum or plasma glucose measurement (mass/volume) 112 mg/dL 70-105 Serum or plasma calcium measurement (mass/volume) 9.3 mg/dL 8.5-10.1 Serum or plasma total bilirubin measurement (mass/volume) 0.6 mg/dL 0.1-1.0 Serum or plasma alkaline phosphatase measurement (enzymatic activity/volume) 56 U/L 40-136 Serum or plasma aspartate aminotransferase measurement (enzymatic activity/ volume) 23 U/L 5-34 Serum or plasma alanine aminotransferase measurement (enzymatic activity/volume ) 19 U/L 0-55 Serum or plasma protein measurement (mass/volume) 7.3 g/dL 6.4-8.2 Serum or plasma albumin measurement (mass/volume) 4.1 g/dL 3.2-4.5 Magnesium - 04/29/17 20:36 Magnesium 2.1 mg/dL 1.8-2.4 Serum or plasma creatine kinase measurement (enzymatic activity/volume) - 04/29 20:36 Serum or plasma creatine kinase measurement (enzymatic activity/volume) 84 U/L 29-168 Serum or plasma creatine kinase MB measurement (enzymatic activity/volume) - 20:36 Serum or plasma creatine kinase MB measurement (enzymatic activity/volume) 2.0 ng/mL <6.6 Serum or plasma troponin i.cardiac measurement (mass/volume) - 04/29/17 20:36 Serum or plasma troponin i.cardiac measurement (mass/volume) < ng/ mL <0.30 Serum or plasma lithium measurement (moles/volume) - 04/29/17 20:36 BNP level 74.0 pg/mL <100.0 Encounters ACCT No. Visit Date/Time Discharge Status Pt. Type Provider Facility Loc./Unit Complaint [id number] 11/08/2017 08:14:00 11/08/2017 23:59:59 CLS Outpatient JODEE GURROLA DO [facility] RAD MEMORY LOSS [id number] 06/30/2017 09:43:00 06/30/2017 23:59:59 CLS Outpatient EDI CHANDLER APRN [facility] RAD R06.02 [id number] 04/29/2017 20:27:00 04/29/2017 22:45:00 DIS Emergency ASTRID JENNIFER REED [facility] ER SOB [id number] 07/30/2016 19:40:00 07/30/2016 21:48:00 DIS Emergency ASTRID JENNIFER REED [facility] ER SOA [id number] 06/08/2016 11:34:00 06/08/2016 23:59:59 CLS Outpatient DENIS CHAWLA APRN [facility] CARD CHEST PAIN [id number] 12/17/2015 08:48:00 12/17/2015 11:46:00 DIS Outpatient DANIEL CABA MD [facility] SDC HISTORY COLON CANCER [id number] 12/16/2015 06:36:00 12/16/2015 12:06:00 DIS Outpatient DANIEL CABA MD [facility] PREOP HISTORY COLON CANCER [id number] 03/25/2015 00:09:00 03/25/2015 23:59:59 CLS Preadmit KRISTINA BAY MD [facility] ONC [id number] 01/07/2015 10:53:00 03/24/2015 00:01:00 DIS Outpatient KRISTINA BAY MD [facility] ONC [id number] 12/31/2014 11:15:00 12/31/2014 23:59:59 CLS Preadmit KRISTINA BAY MD [facility] RAD CANCER OF COLON [id number] 12/05/2014 07:16:00 12/09/2014 18:05:00 DIS Inpatient DANIEL CABA MD [facility] SURGICAL TUBUILLIOUS ADENOMA- COLON MASS [id number] 12/04/2014 09:11:00 12/04/2014 23:59:59 CLS Outpatient DANIEL CABA MD [facility] PREOP TUBUILLIOUS ADENOMA- COLON MASS [id number] 05/18/2013 18:30:00 05/18/2013 21:05:00 DIS Emergency ISIDORO CATNRELL [facility] ER R TOE INJ [id number] 01/22/2011 07:56:00 Document Registration 01/201705/09/2018 09:14:20 05/09/2018 23:59:59 CLS Outpatient [id number] 01/14/2016 15:15:06 01/14/2016 23:59:59 CLS Outpatient [id number] 01/07/2015 10:53:46 ACT Document Registration
[2018-08-22 11:01] LABS: BASOPHILS % (AUTO) 0 % (0-10); EOSINOPHILS # (AUTO) 0.1 10^3/uL (0.0-0.3); EOSINOPHILS % (AUTO) 0 % (0-10); HEMATOCRIT 42 % (35-52); HEMOGLOBIN 13.8 G/DL (11.5-16.0); LYMPHOCYTES # (AUTO) 1.2 X 10^3 (1.0-4.0); LYMPHOCYTES % (AUTO) 9 % (12-44); MEAN CORPUSCULAR HEMOGLOBIN 29 PG (25-34); MEAN CORPUSCULAR HGB CONC 33 G/DL (32-36); MEAN CORPUSCULAR VOLUME 89 FL (80-99); MEAN PLATELET VOLUME 9.5 FL (7.4-10.4); MONOCYTES % (AUTO) 7 % (0-12); NEUTROPHILS # (AUTO) 11.3 X 10^3 (1.8-7.8); NEUTROPHILS % (AUTO) 83 % (42-75); PLATELET COUNT 311 10^3/uL (130-400); RED CELL DISTRIBUTION WIDTH 12.9 % (10.0-14.5); WHITE BLOOD COUNT 13.6 10^3/uL (4.3-11.0)
[2018-08-22 11:17] LABS: ALANINE AMINOTRANSFERASE 21 U/L (0-55); ALBUMIN 3.9 GM/DL (3.2-4.5); ALKALINE PHOSPHATASE 65 U/L (40-136); BILIRUBIN,TOTAL 0.4 MG/DL (0.1-1.0); BUN/CREATININE RATIO 15; CALCIUM 9.7 MG/DL (8.5-10.1); CARBON DIOXIDE 29 MMOL/L (21-32); CHLORIDE 100 MMOL/L (98-107); CREATININE SERUM 0.84 MG/DL (0.60-1.30); GFR ESTIMATED > 60; GLUCOSE 151 MG/DL (70-105); POTASSIUM 4.3 MMOL/L (3.6-5.0); SODIUM 137 MMOL/L (135-145); TOTAL PROTEIN 7.1 GM/DL (6.4-8.2)
--- NOTE | 2018-08-22 11:28 | Diagnostic Imaging Report ---
PROCEDURE: CT head and CT cervical spine without contrast. TECHNIQUE: Multiple contiguous axial images were obtained through the brain and cervical spine without the use of intravenous contrast. Sagittal and coronal reformations through the cervical spine were then performed. INDICATION: Syncope. Fall to the floor. COMPARISON: 11/08/2017 FINDINGS: CT HEAD: The ventricles and cortical sulci are diffusely prominent, compatible with age-related volume loss. There are confluent areas of abnormal, low attenuation in the periventricular white matter. This is consistent with chronic small vessel ischemic changes. There is no midline shift or mass-effect. No acute intra-axial hemorrhage is seen. There are no abnormal areas of increased or decreased density to suggest acute hemorrhage or edema. No extra-axial masses or collections are present. The bony calvarium is intact. The visualized paranasal sinuses are unremarkable. The mastoid air cells are clear. CT CERVICAL SPINE: Static alignment of the cervical spine is maintained. There is no significant anteroretrolisthesis. There is no evidence of jumped facets. Vertebral body heights are maintained. There is no evidence of acute fracture. No bony fragments are seen within the spinal canal. There are mild multilevel degenerative changes consisting of intervertebral disc height loss with anterior and posterior disc bulges. Pre-and paravertebral soft tissue structures are unremarkable. Note is made of heterogeneous bilateral thyromegaly. IMPRESSION: 1. No acute intracranial abnormality. No CT evidence of mass, acute infarct or intracranial hemorrhage. 2. Chronic small vessel ischemic changes in deep white matter. 3. No acute fracture or dislocation of the cervical spine. 4. Partially visualized bilateral heterogeneous thyromegaly. Further characterization with dedicated thyroid sonogram is recommended and could be performed on a nonemergent basis. Dictated by: Dictated on workstation # [id number]
--- NOTE | 2018-08-22 12:14 | ED Trauma-Multisystem ---
General Chief Complaint: Trauma-Non Activation Stated Complaint: FALL Nursing Triage Note: TO ED PER EMS FROM HOME EMS REPORTS PATIENT WAS BAKING A CAKE AND WOKE UP ON THE FLOOR PATIENT REPORTED TO STAFF SHE HAD TO CRAWEL TO CHAIR BECAUSE SHE COULD NOT GET UP. HEMATOMA TO BACK OF HEAD NOTED. C COLLAR IN PLACE Source of Information: Patient, EMS, Family Exam Limitations: No Limitations (KRISTINA WANG STUDENT) History of Present Illness Date Seen by Provider: Aug 22, 2018 Time Seen by Provider: 11:40 Initial Comments 88 y/o F presented via EMS after falling this morning and altered mental status post-fall. Family notes that she has been increasingly weak for the past 1-2 weeks; however, this is her first fall. Family also reported she had an episode of lightheadedness this week. She was at home this morning around 7am baking and woke up later on the floor. At about 10 am, she crawled into the living room due to weakness to call for help. She does not recall falling. EMS noted that she hit the back side of her head and had some confusion upon their arrival. She complains of lower back/sacral pain. She does have some stiffness in her neck. Occurred: This Morning Severity: Moderate Pain/Injury Location: Back (low back pain), Head (back side of head), Pelvis ( sacral pain) Method of Injury: Fall Modifying Factors: Immobilization; No Movement Loss of Consciousness: Unsure (found at about 10 am) Associated Symptoms (Fall): No Chest Pain; Confusion; No Dizziness; Lightheadedness; No Nausea/Vomiting; Neck Pain; No Shortness of Air, No Slurred Speech; Trouble Walking (KRISTINA WANG STUDENT) Occurred: This Morning Severity: Moderate Pain/Injury Location: Back (low back pain), Head (back side of head) Method of Injury: Fall Loss of Consciousness: Unsure (found at about 10 am) Associated Symptoms (Fall): Confusion, Lightheadedness, Neck Pain (LORRAINE MALIK MD) Allergies and Home Medications Allergies Coded Allergies: No Known Drug Allergies (Verified , 12/17/15) Home Medications No Active Prescriptions or Reported Meds Patient Home Medication List Home Medication List Reviewed: Yes (KRISTINA WANG) Home Medication List Reviewed: Yes (LORRAINE MALIK MD) Review of Systems Review of Systems Constitutional: No chills, No dizziness, No fever; malaise, weakness Eyes: Denies Pain, Denies Vision Changes Ears: Denies Dizziness, Denies Tinnitus Nose: No Bloody Discharge, No Clear Discharge, No Pain Mouth: No Loose Teeth, No Pain Throat: No Difficulty With Fluids; Neck Stiffness Respiratory: No cough, No short of breath, No wheezing Cardiovascular: Denies Chest Pain; Lightheadedness; Denies Palpitations Gastrointestinal: No abdominal pain, No constipation, No diarrhea, No nausea, No vomiting Genitourinary: No dysuria, No frequency Musculoskeletal: back pain (low back pain, sacral pain), muscle pain, neck pain Skin: lesions (posterior head wound/hematoma per EMS); No pruritus, No rash Psychiatric/Neurological: Denies Headache, Denies Numbness, Denies Tingling, Denies Unable to Move Lower Ext, Denies Unable to Move Upper Ext; Weakness ( KRISTINA WANG) Constitutional: see HPI, weakness Eyes: No Symptoms Reported Ears: No Symptoms Reported Nose: No Symptoms Reported Mouth: No Symptoms Reported Throat: See HPI Respiratory: No cough, No short of breath Cardiovascular: Denies Chest Pain; Lightheadedness Gastrointestinal: No nausea, No vomiting Genitourinary: no symptoms reported Musculoskeletal: back pain (low back pain, sacral pain), muscle pain, neck pain Skin: see HPI Psychiatric/Neurological: See HPI (LORRAINE MALIK MD) All Other Systems Reviewed Negative Unless Noted: Yes (LORRAINE MALIK MD) Past Cvsynxo-Sawpbd-Zgmksq Hx Past Med/Social Hx: Reviewed Nursing Past Med/Soc Hx (LORRAINE MALIK MD) Patient Social History Alcohol Use: Denies Use Recreational Drug Use: No Smoking Status: Never a Smoker 2nd Hand Smoke Exposure: No Recent Foreign Travel: No Contact w/Someone Who Travel: No Recent Infectious Disease Expo: No Recent Hopitalizations: No (KRISTINA WANG) Immunizations Up To Date Date of Pneumonia Vaccine: Apr 10, 2015 Date of Influenza Vaccine: Apr 10, 2016 (KRISTINA WANG) Seasonal Allergies Seasonal Allergies: No (KRISTINA WANG) Past Medical History Surgeries: Yes (ABDOMINAL /BOWEL SURGERY FOR CANCER) Abdominal, Bowel Surgery Respiratory: No Cardiac: No Neurological: No Reproductive Disorders: No 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 Sexually Transmitted Disease: No HIV/AIDS: No Genitourinary: No Gastrointestinal: Yes (HX COLON CA) Musculoskeletal: No Endocrine: No HEENT: Yes Cataract Cancer: Yes Colon Did You Recieve Any Treatments: Yes What Type of Treatment Did You: Surgical Intervention Psychosocial: No Integumentary: No Blood Disorders: No (KRISTINA WANG STUDENT) Family Medical History Reviewed Nursing Family Hx (LORRAINE MALIK MD) Cardiovascular disease 19 MOTHER G8 BROTHER G8 SISTER Hypertension 19 FATHER 19 MOTHER G8 BROTHER G8 SISTER Respiratory disorder G8 BROTHER Physical Exam Vital Signs Vital Signs - First Documented 08/22/18 10:31 Temp 96.2 Pulse 78 Resp 18 B/P (MAP) 134/74 (94) Pulse Ox 96 O2 Delivery Room Air (LORRAINE MALIK MD) Height, Weight, BMI Height: 5'0" Weight: 109lbs. 0.0oz. 49.116252xt; 20.8 BMI Method:Stated General Appearance: WD/WN, Mild Distress Head: Other (matted blood to the back of the head); No Raccoon Eyes Eyes: Bilateral Eye Normal Inspection, Bilateral Eye PERRL, Bilateral Eye EOMI Ears, Nose, Throat: Hearing Grossly Normal, No Evidence of ENT Injury, No Dental Injury Neck: Normal Inspection, Supple, Limited Range of Motion (due to tenderness), Tender Midline Cardiovascular: Regular Rate, Rhythm, No Edema, No Murmur, Normal Peripheral Pulses Respiratory: Chest Non Tender, Lungs Clear, Normal Breath Sounds, No Accessory Muscle Use, No Respiratory Distress Gastrointestinal: Normal Bowel Sounds, No Organomegaly, Soft, Tenderness Back: No CVA Tenderness, Vertebral Tenderness (low back pain, sacral pain) Extremity: Normal Capillary Refill, Non Tender, No Calf Tenderness, No Pedal Edema Neurologic/Psychiatric: Alert, Oriented x3, No Motor/Sensory Deficits, Normal Mood/Affect Skin: Normal Color, Warm/Dry (KRISTINA WANG STUDENT) General Appearance: WD/WN Head: No Evidence of Injury, Other (matted blood to the back of the head) Ears, Nose, Throat: Hearing Grossly Normal, No Dental Injury Neck: Supple, Limited Range of Motion (due to tenderness), Tender Lateral Cardiovascular: Regular Rate, Rhythm, No Edema Respiratory: Chest Non Tender, Lungs Clear, Normal Breath Sounds Gastrointestinal: Non Tender, Soft Back: No CVA Tenderness, Vertebral Tenderness (low back pain, sacral pain) Neurologic/Psychiatric: Alert, Oriented x3 Skin: Warm/Dry, Other (abrasion to the posterior scalp with some bruising noted. Scalp hematoma noted.) (LORRAINE MALIK MD) [place] Coma Score Best Eye Response (Jayy): (4) Open Spontaneously Best Verbal Response ([place]): (5) Oriented Best Motor Response ([place]): (6) Obeys Commands (LORRAINE MALIK MD) Progress/Results/Core Measures Results/Orders Lab Results Laboratory Tests Test 08/22/18 10:55 08/22/18 11:22 Range/Units White Blood Count 13.6 H 4.3-11.0 10^3/uL Red Blood Count 4.71 4.35-5.85 10^6/uL Hemoglobin 13.8 11.5-16.0 G/DL Hematocrit 42 35-52 % Mean Corpuscular Volume 89 80-99 FL Mean Corpuscular Hemoglobin 29 25-34 PG Mean Corpuscular Hemoglobin Concent 33 32-36 G/DL Red Cell Distribution Width 12.9 10.0-14.5 % Platelet Count 311 130-400 10^3/uL Mean Platelet Volume 9.5 7.4-10.4 FL Neutrophils (%) (Auto) 83 H 42-75 % Lymphocytes (%) (Auto) 9 L 12-44 % Monocytes (%) (Auto) 7 0-12 % Eosinophils (%) (Auto) 0 0-10 % Basophils (%) (Auto) 0 0-10 % Neutrophils # (Auto) 11.3 H 1.8-7.8 X 10^3 Lymphocytes # (Auto) 1.2 1.0-4.0 X 10^3 Monocytes # (Auto) 1.0 0.0-1.0 X 10^3 Eosinophils # (Auto) 0.1 0.0-0.3 10^3/uL Basophils # (Auto) 0.0 0.0-0.1 10^3/uL Sodium Level 137 135-145 MMOL/L Potassium Level 4.3 3.6-5.0 MMOL/L Chloride Level 100 98-107 MMOL/L Carbon Dioxide Level 29 21-32 MMOL/L Anion Gap 8 5-14 MMOL/L Blood Urea Nitrogen 13 7-18 MG/DL Creatinine 0.84 0.60-1.30 MG/DL Estimat Glomerular Filtration Rate > 60 BUN/Creatinine Ratio 15 Glucose Level 151 H 70-105 MG/DL Calcium Level 9.7 8.5-10.1 MG/DL Corrected Calcium 9.8 8.5-10.1 MG/DL Total Bilirubin 0.4 0.1-1.0 MG/DL Aspartate Amino Transf (AST/SGOT) 28 5-34 U/L Alanine Aminotransferase (ALT/SGPT) 21 0-55 U/L Alkaline Phosphatase 65 40-136 U/L Total Protein 7.1 6.4-8.2 GM/DL Albumin 3.9 3.2-4.5 GM/DL Thyroid Stimulating Hormone (TSH) 0.84 0.35-4.94 UIU/ML Urine Color YELLOW Urine Clarity CLEAR Urine pH 6.5 5-9 Urine Specific [place] 1.020 1.016-1.022 Urine Protein 1+ H NEGATIVE Urine Glucose (UA) NEGATIVE NEGATIVE Urine Ketones NEGATIVE NEGATIVE Urine Nitrite NEGATIVE NEGATIVE Urine Bilirubin NEGATIVE NEGATIVE Urine Urobilinogen NORMAL NORMAL MG/DL Urine Leukocyte Esterase 1+ H NEGATIVE Urine RBC (Auto) NEGATIVE NEGATIVE Urine RBC NONE /HPF Urine WBC 2-5 /HPF Urine Squamous Epithelial Cells RARE /HPF Urine Crystals NONE /LPF Urine Bacteria TRACE /HPF Urine Casts PRESENT /LPF Urine Hyaline Casts 10-25 H /LPF Urine Granular Casts RARE /LPF Urine Mucus SMALL H /LPF Urine Culture Indicated YES (LORRAINE MALIK MD) My Orders Orders - LORRAINE MALIK MD Cbc With Automated Diff (08/22/18 10:39) Comprehensive Metabolic Panel (08/22/18 10:39) Ekg Tracing (08/22/18 10:39) Ct Head/Cervical Spine Wo (08/22/18 10:39) Thyroid Stimulating Hormone (08/22/18 11:41) Ct Lumbar Spine Wo (08/22/18 11:55) Pelvis (08/22/18 11:55) Ua Culture If Indicated (08/22/18 11:55) Urine Culture (08/22/18 11:22) Saline Lock/Iv-Start (08/22/18 13:31) Ns Iv 500 Ml (Sodium Chloride 0.9%) (08/22/18 13:31) Ketorolac Injection (Toradol Injection) (08/22/18 13:31) (LORRAINE MALIK MD) Medications Given in ED Current Medications Medications Dose Ordered Sig/Katie Route Start Time Stop Time Status Last Admin Dose Admin Sodium Chloride 500 ml @ 0 mls/hr Q0M ONCE IV 08/22/18 13:31 08/22/18 13:32 DC 08/22/18 13:49 500 MLS/HR (LORRAINE MALIK MD) Vital Signs/I&O 08/22/18 10:31 Temp 96.2 Pulse 78 Resp 18 B/P (MAP) 134/74 (94) Pulse Ox 96 O2 Delivery Room Air (LORRAINE MALIK MD) Blood Pressure Mean: 94 Progress Progress Note : Time: 10:45 Progress Note CBC, CMP, CT head/neck, EKG. Monitor patient. 11:40 -- TSH, UA, CT pelvis and lumbar spine (KRISTINA WANG STUDENT) Progress Note : Progress Note I have seen and evaluated the patient and agree with above except as indicated. I have directed the plan of care. Patient is here after fall with possible loss of consciousness. She did wake up and did not realize what happened and actually was walking around afterwards. Reportedly she was actually cleaning up the area where she fell and did not realize that she had fallen. Does have pain is described above. CT head and neck ordered as well as labs and UA. We did get additional lumbar spine CT as well as pelvic x-rays. Overall no acute fractures or findings. We will give normal saline 500 mL bolus and she will be discharged home with return precautions. She was instructed to follow with her doctor. There is question of urinary tract infection although its minimal and we will await cultures and treat if needed. Discharged home with return precautions. Patient verbalize understanding instructions and agreement with plan. 1411: We will admit the patient for observation. She has had a couple periods of confusion and eye fluttering that are brief that are occurring including when talking with our grinder needle tip. Not sure if there is an underlying arrhythmia or phthisis sequela from head injury but observation seems indicated and warranted. I discussed the case with Dr. Joaquin and he accepts patient in consult. I discussed the case with Dr. Pathak and she accepts patient for admission, observation status. Patient and family agree with plan. (LORRAINE MALIK MD) Initial ECG Impression Date: Aug 22, 2018 Initial ECG Impression Time: 10:44 Initial ECG Rate: 79 Initial ECG Rhythm: Normal Sinus Initial ECG Intervals: Normal Initial ECG Comparisson: Unchanged Comment Sinus rhythm. Normal axis. No evidence of STEMI. Similar to previous EKG on . Interpreted by Dr. Malik. (KRISTINA WANG STUDENT) Diagnostic Imaging Diagonstic Imaging: CT Plain Films/CT/US/NM/MRI: c-spine, head Comments NAME: STERLING ZAMORA [facility] REC#: [id number] PT STATUS: REG ER : 1930 PHYSICIAN: LORRAINE MALIK MD ADMIT DATE: 08/22/18/ER Draft Date of Exam:08/22/18 CT HEAD/CERVICAL SPINE WO PROCEDURE: CT head and CT cervical spine without contrast. TECHNIQUE: Multiple contiguous axial images were obtained through the brain and cervical spine without the use of intravenous contrast. Sagittal and coronal reformations through the cervical spine were then performed. INDICATION: Syncope. Fall to the floor. COMPARISON: 11/08/2017 FINDINGS: CT HEAD: The ventricles and cortical sulci are diffusely prominent, compatible with age-related volume loss. There are confluent areas of abnormal, low attenuation in the periventricular white matter. This is consistent with chronic small vessel ischemic changes. There is no midline shift or mass-effect. No acute intra-axial hemorrhage is seen. There are no abnormal areas of increased or decreased density to suggest acute hemorrhage or edema. No extra-axial masses or collections are present. The bony calvarium is intact. The visualized paranasal sinuses are unremarkable. The mastoid air cells are clear. CT CERVICAL SPINE: Static alignment of the cervical spine is maintained. There is no significant anteroretrolisthesis. There is no evidence of jumped facets. Vertebral body heights are maintained. There is no evidence of acute fracture. No bony fragments are seen within the spinal canal. There are mild multilevel degenerative changes consisting of intervertebral disc height loss with anterior and posterior disc bulges. Pre-and paravertebral soft tissue structures are unremarkable. Note is made of heterogeneous bilateral thyromegaly. IMPRESSION: 1. No acute intracranial abnormality. No CT evidence of mass, acute infarct or intracranial hemorrhage. 2. Chronic small vessel ischemic changes in deep white matter. 3. No acute fracture or dislocation of the cervical spine. 4. Partially visualized bilateral heterogeneous thyromegaly. Further characterization with dedicated thyroid sonogram is recommended and could be performed on a nonemergent basis. Dictated on workstation # [id number] Dict: 08/22/18 1119 Trans: 08/22/18 1128 [id number] Interpreted by: MUKUL ALVAREZ MD Electronically signed by: Time of Consult: Reviewed: Reviewed/Discussed (KRISTINA WANG STUDENT) Diagonstic Imaging: CT Plain Films/CT/US/NM/MRI: other Comments [facility] [place] NAME: STERLING ZAMORA [facility] REC#: [id number] PT STATUS: REG ER : 1930 PHYSICIAN: LORRAINE MALIK MD ADMIT DATE: 08/22/18/ER Draft Date of Exam:08/22/18 CT LUMBAR SPINE WO PROCEDURE: CT lumbar spine without contrast. TECHNIQUE: Multiple contiguous axial images were obtained through the lumbar spine without the use of intravenous contrast. Sagittal and coronal reformations were then performed. INDICATION: Fall, low back pain. COMPARISON: None. FINDINGS: There is diffuse osteopenia. The alignment of the lumbar spine appears normal. The vertebral body heights and disc heights are preserved. No acute fracture is seen. There is moderate facet arthropathy in the lower lumbar spine. No bony fragments or hyperdense fluid collections are seen in the spinal canal. There are disc bulges at L4-5 and L5-S1. There is moderate foraminal narrowing at L4-5 on the right. There is moderate spinal canal stenosis at L4-5 as well. IMPRESSION: 1. No acute osseous abnormality is seen in the lumbar spine. 2. Degenerative changes in the lumbar spine, most notable at L4-5. There is moderate spinal canal and right foraminal stenosis at this level. Dictated on workstation # [id number] Dict: 08/22/18 1252 Trans: 08/22/18 1259 [id number] Interpreted by: HUAN RODRIGUEZ MD Electronically signed by: Barbara Imaging: Xray Plain Films/CT/US/NM/MRI: pelvis Comments [facility] [place] NAME: STERLING ZAMORA [facility] REC#: [id number] PT STATUS: REG ER : 1930 PHYSICIAN: LORRAINE MALIK MD ADMIT DATE: 08/22/18/ER Draft Date of Exam:08/22/18 PELVIS PATIENT HISTORY: Found on the ground. TECHNIQUE: Frontal view of the pelvis. COMPARISON: None. FINDINGS: There is diffuse osteopenia. Mild degenerative changes are seen in the bilateral hip joints, sacroiliac joints and lower lumbar spine. No acute fractures seen. Phleboliths are noted in the pelvis. IMPRESSION: Osteopenia with no acute osseous abnormalities seen in the pelvis. Dictated on workstation # [id number] Dict: 08/22/18 1245 Trans: 08/22/18 1253 [facility] [id number] Interpreted by: HUAN RODRIGUEZ MD Electronically signed by: (LORRAINE MALIK MD) Departure Communication (Admissions) Time/Spoke to Admitting Phy: 14:00 (LORRAINE MALIK MD) Impression Primary Impression: Head injury Qualified Codes: S09.90XA - Unspecified injury of head, initial encounter Additional Impressions: Scalp contusion Qualified Codes: S00.03XA - Contusion of scalp, initial encounter Contusion of pelvic region Qualified Codes: S30.0XXA - Contusion of lower back and pelvis, initial encounter Disposition: ADMITTED INPATIENT Condition: Stable Admissions Decision to Admit Reason: Admit from ER (General) Decision to Admit/Date: Aug 22, 2018 Time/Decision to Admit Time: 14:00 (LORRAINE MALIK MD) Departure-Patient Inst. Referrals: JODEE PATHAK DO (PCP/Family) Primary Care Physician Patient Instructions: Concussion, Adult (DC), Contusion (DC), Skin Abrasions ( DC) Add. Discharge Instructions: All discharge instructions reviewed with patient and/or family. Voiced understanding. Scripts No Active Prescriptions or Reported Meds Copy Copies To 1: JODEE PATHAK MARY K STUDENT Aug 22, 2018 12:14 LORRAINE MALIK MD Aug 22, 2018 13:27
[2018-08-22 12:38] LABS: BILIRUBIN,URINE NEGATIVE (NEGATIVE); CLARITY,URINE CLEAR; COLOR,URINE YELLOW; GLUCOSE, URINE (UA) NEGATIVE (NEGATIVE); KETONES,URINE NEGATIVE (NEGATIVE); LEUKOCYTE ESTERASE ,URINE 1+ (NEGATIVE); NITRITE,URINE NEGATIVE (NEGATIVE); PH,URINE 6.5 (5-9); PROTEIN,URINE 1+ (NEGATIVE); UROBILINOGEN,URINE NORMAL (NORMAL)
[2018-08-22 12:48] LABS: BACTERIA,URINE TRACE /HPF; GRANULAR CASTS,URINE RARE /LPF; SQUAMOUS EPITHELIAL CELL,UR RARE /HPF
--- NOTE | 2018-08-22 12:54 | Diagnostic Imaging Report ---
PATIENT HISTORY: Found on the ground. TECHNIQUE: Frontal view of the pelvis. COMPARISON: None. FINDINGS: There is diffuse osteopenia. Mild degenerative changes are seen in the bilateral hip joints, sacroiliac joints and lower lumbar spine. No acute fractures seen. Phleboliths are noted in the pelvis. IMPRESSION: Osteopenia with no acute osseous abnormalities seen in the pelvis. Dictated by: Dictated on workstation # [id number]
--- NOTE | 2018-08-22 13:00 | Diagnostic Imaging Report ---
PROCEDURE: CT lumbar spine without contrast. TECHNIQUE: Multiple contiguous axial images were obtained through the lumbar spine without the use of intravenous contrast. Sagittal and coronal reformations were then performed. INDICATION: Fall, low back pain. COMPARISON: None. FINDINGS: There is diffuse osteopenia. The alignment of the lumbar spine appears normal. The vertebral body heights and disc heights are preserved. No acute fracture is seen. There is moderate facet arthropathy in the lower lumbar spine. No bony fragments or hyperdense fluid collections are seen in the spinal canal. There are disc bulges at L4-5 and L5-S1. There is moderate foraminal narrowing at L4-5 on the right. There is moderate spinal canal stenosis at L4-5 as well. IMPRESSION: 1. No acute osseous abnormality is seen in the lumbar spine. 2. Degenerative changes in the lumbar spine, most notable at L4-5. There is moderate spinal canal and right foraminal stenosis at this level. Dictated by: Dictated on workstation # [id number]
[2018-08-22 13:30] VITALS: BP 181/79
--- NOTE | 2018-08-22 13:30 | NUR ---
MED STUDENT AND FAMILY OBSERVED PATIENT STARING AND EYES FLUTTERING. DR NOTIFIED.
[2018-08-22] MEDS ORDERED: KETOROLAC 30 MG/ML VIAL IVP STA (13:31)
[2018-08-22] MEDS ORDERED: NS IV 500 ML 500 ML IV ONE (13:31)
--- NOTE | 2018-08-22 15:30 | NUR ---
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 Patient Rights given to patient in the handbook. STERLING ZAMORA verbalizes understanding that [facility] is not responsible for the loss or damage to any personal effects or valuables that are kept in the patients posession during their hospitalization. The following Patient Care Plans were discussed with the : Discharge Planning, POT. FOR FALL, HIGH RISK INJURY, AND HIGH RISSK ACT INTOL. STERLING ZAMORA verbalizes understanding of Interdisciplinary Patient Education. Patient and/or family were informed about the Rapid Response Team and its purpose. CAME TO FLOOR FROM ER W/ SL IN AC ( WAS STARTED BY EMS)
[2018-08-22] MEDS ORDERED: CATHETER FLUSH 10 ML SYR IV PRN (15:45)
[2018-08-22] MEDS ORDERED: ACETAMINOPHEN 325 MG TABLET PO PRN (15:45)
--- NOTE | 2018-08-22 17:04 | NUR ---
Initial visit in ER with Pastor Jonathan Higgins and pt's son, Edy Ruiz. Pt currently lives at home alone. Edy expressed desire to speak with Oxana Grant, [facility] or other Social Workers about planning safer arrangements for pt's living situation. [facility] consultation placed by staff. Pt is [employer] and attends [employer]. Four of her children have , one son was brutally murdered. Pt demonstrates forgiveness and emotional peace in the midst of various struggles. During our visit the pt's eyelids began to flutter and she panned the room but appeared to be looking through us. She later said she could hear us and knew we were there, and yet suddenly could not see us for about 5 seconds.
[2018-08-22] MEDS ORDERED: CHOL10007 PO (17:25)
[2018-08-22] MEDS ORDERED: OMG1KC PO (17:25)
[2018-08-22] MEDS ORDERED: VITA400C60 PO (17:25)
[2018-08-22 17:50] VITALS: BP 133/68
--- NOTE | 2018-08-22 18:47 | Consultation ---
History of Present Illness History of Present Illness Patient Consulted On(amraan/time) 08/22/18 18:37 Date Seen by Provider: Aug 22, 2018 Time Seen by Provider: 17:00 History of Present Illness consult requested by Dr. Matson for fall patient is a 88-year-old female who awoke on the floor after baking cake. Patient is unsure how she got onto the floor but the timeframe was probably approximately a three-hour time difference. Patient found her cake on the floor and also had a small amount of blood on the floor as well. She has a little bit of a headache. She is unclear on the events. Patient was brought by EMS to the emergency room from her for further evaluation. She was CT scan of the head and C-spine which did not demonstrate any acute abnormalities. Patient also had CT of the spine without any abnormality and also pelvis x-ray without any acute abnormality. Patient was having some slight confusion and eye fluttering right before she was going to be discharged and so therefore was admitted for observation. Allergies and Home Medications Allergies Coded Allergies: No Known Drug Allergies (Verified , 12/17/15) Home Medications Cholecalciferol (Vitamin D3) 1,000 Unit Capsule, 1,000 UNIT PO DAILY, (Reported) [place] 3 Polyunsat Fatty Acids 1,000 Mg Cap, 1,000 MG PO DAILY, (Reported) Vitamin E Acetate 400 Unit Capsule, 400 UNIT PO DAILY, (Reported) Patient Home Medication List Home Medication List Reviewed: Yes Past Xbnihpi-Vztxyb-Qaoled Hx Patient Social History Alcohol Use: Denies Use Recreational Drug Use: No Smoking Status: Never a Smoker 2nd Hand Smoke Exposure: No Recent Foreign Travel: No Contact w/Someone Who Travel: No Recent Infectious Disease Expo: No Recent Hopitalizations: No Physical Abuse Screen: No Sexual Abuse: No Immunizations Up To Date Date of Pneumonia Vaccine: Apr 10, 2015 Date of Influenza Vaccine: Apr 10, 2018 Seasonal Allergies Seasonal Allergies: No Surgeries History of Surgeries: Yes (ABDOMINAL /BOWEL SURGERY FOR CANCER) Surgeries: Abdominal, Bowel Surgery Respiratory History of Respiratory Disorde: No Cardiovascular History of Cardiac Disorders: No Neurological History of Neurological Disord: No Reproductive System : No Hx Reproductive Disorders: No Sexually Transmitted Disease: No HIV/AIDS: 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 Genitourinary History of Genitourinary Disor: No Gastrointestinal History of Gastrointestinal Di: Yes (HX COLON CA) Musculoskeletal History of Musculoskeletal Dis: No Endocrine History of Endocrine Disorders: No HEENT History of HEENT Disorders: Yes HEENT Disorders: Cataract Cancer History of Cancer: Yes Cancer: Colon Psychosocial History of Psychiatric Problem: No Integumentary History of Skin or Integumenta: No Blood Transfusions History of Blood Disorders: No Family Medical History Significant Family History: No Pertinent Family Hx Family Medial History: Cardiovascular disease 19 MOTHER G8 BROTHER G8 SISTER Hypertension 19 FATHER 19 MOTHER G8 BROTHER G8 SISTER Respiratory disorder G8 BROTHER Review of Systems-General Constitutional: see HPI EENTM: see HPI Respiratory: no symptoms reported Cardiovascular: no symptoms reported Gastrointestinal: no symptoms reported Genitourinary: no symptoms reported Musculoskeletal: no symptoms reported Skin: no symptoms reported Physical Exam-General Problems Physical Exam Vital Signs Vital Signs - First Documented 08/22/18 10:31 Temp 96.2 Pulse 78 Resp 18 B/P (MAP) 134/74 (94) Pulse Ox 96 O2 Delivery Room Air Capillary Refill : Less Than 3 SecondsLess Than 3 Seconds General Appearance: no apparent distress HEENT: PERRL/EOMI, other (hematoma posterior scalp) Neck: non-tender, supple, normal inspection Respiratory: chest non-tender, no respiratory distress, no accessory muscle use Cardiovascular: regular rate, rhythm Gastrointestinal: non tender, soft, no organomegaly Rectal: deferred Back: normal inspection, no CVA tenderness Extremities: non-tender, normal inspection, no pedal edema Neurologic/Psychiatric: adobe architect II-XII nml as tested, no motor/sensory deficits, alert, normal mood/affect, oriented x 3 Skin: normal color, warm/dry Lymphatic: no adenopathy Data Review Labs Laboratory Tests 08/22/18 10:55: White Blood Count 13.6H, Red Blood Count 4.71, Hemoglobin 13.8, Hematocrit 42, Mean Corpuscular Volume 89, Mean Corpuscular Hemoglobin 29, Mean Corpuscular Hemoglobin Concent 33, Red Cell Distribution Width 12.9, Platelet Count 311, Mean Platelet Volume 9.5, Neutrophils (%) (Auto) 83H, Lymphocytes (%) (Auto) 9L , Monocytes (%) (Auto) 7, Eosinophils (%) (Auto) 0, Basophils (%) (Auto) 0, Neutrophils # (Auto) 11.3H, Lymphocytes # (Auto) 1.2, Monocytes # (Auto) 1.0, Eosinophils # (Auto) 0.1, Basophils # (Auto) 0.0, Sodium Level 137, Potassium Level 4.3, Chloride Level 100, Carbon Dioxide Level 29, Anion Gap 8, Blood Urea Nitrogen 13, Creatinine 0.84, Estimat Glomerular Filtration Rate > 60, BUN/ Creatinine Ratio 15, Glucose Level 151H, Calcium Level 9.7, Corrected Calcium 9.8, Total Bilirubin 0.4, Aspartate Amino Transf (AST/SGOT) 28, Alanine Aminotransferase (ALT/SGPT) 21, Alkaline Phosphatase 65, Total Protein 7.1, Albumin 3.9, Thyroid Stimulating Hormone (TSH) 0.84 08/22/18 11:22: Urine Color YELLOW, Urine Clarity CLEAR, Urine pH 6.5, Urine Specific [place] 1.020, Urine Protein 1+H, Urine Glucose (UA) NEGATIVE, Urine Ketones NEGATIVE, Urine Nitrite NEGATIVE, Urine Bilirubin NEGATIVE, Urine Urobilinogen NORMAL, Urine Leukocyte Esterase 1+H, Urine RBC (Auto) NEGATIVE, Urine RBC NONE, Urine WBC 2-5, Urine Squamous Epithelial Cells RARE, Urine Crystals NONE, Urine Bacteria TRACE, Urine Casts PRESENT, Urine Hyaline Casts 10-25H, Urine Granular Casts RARE, Urine Mucus SMALLH, Urine Culture Indicated YES Assessment/Plan Assessment/Plan Assessment/Plan fall hematoma scalp posteriorly confusion Patient is an 88-year-old female with fall earlier this morning. Patient workup for any significant acute trauma negative [place] patient was having some confusion and eye fluttering. Currently patient is alert and oriented and not having any difficulties. She was admitted for further observation. If any changes will need reevaluation. No surgical intervention at this time. Will follow. Clinical Quality Measures DVT/VTE Risk/Contraindication: Risk Factor Score Per Nursin RFS Level Per Nursing on Admit: 2=Moderate RAHEL HARPER DO Aug 22, 2018 18:45
[2018-08-22 21:01] VITALS: BP 117/56
[2018-08-22] MEDS: CATHETER FLUSH 10 ML SYR IV SCH (22:00)
[2018-08-22 23:37] VITALS: BP 117/57
[2018-08-23 04:00] VITALS: BP 126/72
[2018-08-23] MEDS: CATHETER FLUSH 10 ML SYR IV SCH ×3 (05:05→22:45)
[2018-08-23 05:45] LABS: BASOPHILS % (AUTO) 0 % (0-10); EOSINOPHILS # (AUTO) 0.1 10^3/uL (0.0-0.3); EOSINOPHILS % (AUTO) 1 % (0-10); HEMATOCRIT 37 % (35-52); HEMOGLOBIN 12.5 G/DL (11.5-16.0); LYMPHOCYTES # (AUTO) 1.3 X 10^3 (1.0-4.0); LYMPHOCYTES % (AUTO) 14 % (12-44); MEAN CORPUSCULAR HEMOGLOBIN 30 PG (25-34); MEAN CORPUSCULAR HGB CONC 34 G/DL (32-36); MEAN CORPUSCULAR VOLUME 88 FL (80-99); MEAN PLATELET VOLUME 9.5 FL (7.4-10.4); MONOCYTES # (AUTO) 0.9 X 10^3 (0.0-1.0); MONOCYTES % (AUTO) 10 % (0-12); NEUTROPHILS # (AUTO) 6.5 X 10^3 (1.8-7.8); NEUTROPHILS % (AUTO) 74 % (42-75); PLATELET COUNT 282 10^3/uL (130-400); RED CELL DISTRIBUTION WIDTH 12.7 % (10.0-14.5); WHITE BLOOD COUNT 8.8 10^3/uL (4.3-11.0)
[2018-08-23 06:05] LABS: BUN/CREATININE RATIO 14; CARBON DIOXIDE 24 MMOL/L (21-32); CHLORIDE 103 MMOL/L (98-107); CREATININE SERUM 0.66 MG/DL (0.60-1.30); GFR ESTIMATED > 60; GLUCOSE 106 MG/DL (70-105); POTASSIUM 4.1 MMOL/L (3.6-5.0); SODIUM 136 MMOL/L (135-145)
[2018-08-23 08:00] VITALS: BP 104/58
[2018-08-23 10:30] VITALS: BP_SYST 111; BP_SYST 114; BP_SYST 94; BP_DIAS 53; BP_DIAS 55
[2018-08-23 12:00] VITALS: BP 127/56
--- NOTE | 2018-08-23 15:01 | Diagnostic Imaging Report ---
PROCEDURE: US carotid duplex, bilateral. TECHNIQUE: Multiple real-time grayscale images were obtained over the carotid arteries in various projections, bilaterally. Additional spectral analysis and color Doppler duplex images were also obtained. INDICATION: Syncope. Minimal plaquing is identified at the carotid bifurcations bilaterally. Velocities are unremarkable bilaterally. No significant velocity elevation is seen to suggest stenosis. The left vertebral artery shows antegrade flow. The right vertebral artery was not visualized. IMPRESSION: Minimal bilateral carotid plaque. There is no evidence of a hemodynamically significant stenosis. Note is made that the right vertebral artery was not visualized. Parameters based on the consensus panel [place]-Scale and Doppler ultrasound criteria published May 2003, Radiology, Volume 229. DOPPLER (peak systolic velocity M/S Right Left CCA 0.63 0.70 ICA Proximal 0.45 0.25 ICA Mid 0.56 0.59 ICA Distal 0.85 0.66 RATIO 1.34 0.94 ECA 0.58 0.45 VERT NOT SEEN AT THIS TIME 0.83 Dictated by: Dictated on workstation # [id number]
--- NOTE | 2018-08-23 15:44 | Consultation-Cardiology ---
HPI-Cardiology Cardiology Consultation: Date of Consultation 08/23/18 Time Seen by a Provider: 13:20 Date of Admission Attending Physician Yamilet Pathak DO Admitting Physician Yamilet Pathak DO Consulting Physician SIERRA REVELES MD, MA, FACP, FACC, FSCAI, CCDS Physician requesting consult: Dr Pathak HPI: Chief Complaint: CC: Loss of consciousness HPI: 88 yo woman who lives by self and who lost consciousness whiled baking a cake at home on 08/22/18. She fell to the floor. No witnesses. Doesn't know how long she was out. No premonitory symptoms. No symptoms afterwards Denies cp or shortness of breath or palp or leg swelling or fever, chills Review of Systems-Cardiology Review of Systems Constitutional: malaise; No weight loss Eyes: No vision change Ears/Nose/Throat: No ear discharge, No nasal drainage, No recent hearing loss Respiratory: As described under HPI Cardiovascular: As described under HPI Gastrointestinal: No diarrhea, No nausea, No vomiting Genitourinary: No dysuria, No hematuria, No urine frequency changes Musculoskeletal: back pain (chronic) Skin: No rash, No ulcerations Psychiatric/Neurological: syncope (as described in HPI); No anxiety, No depression, No seizure, No focal weakness All Other Systems Reviewed Negative Unless Noted: Yes UQS-Htlhyt-Ztwsfe Hx Patient Social History Alcohol Use: Denies Use Recreational Drug Use: No Smoking Status: Never a Smoker 2nd Hand Smoke Exposure: No Recent Foreign Travel: No Recent Infectious Disease Expo: No Hospitalization with Isolation: Denies Physical Abuse Screen: No Sexual Abuse: No Immunizations Up To Date Date of Pneumonia Vaccine: Apr 10, 2015 Date of Influenza Vaccine: Apr 10, 2018 Past Medical History PMH As described under Assessment. Family Medical History Family History: Cardiovascular disease 19 MOTHER G8 BROTHER G8 SISTER Hypertension 19 FATHER 19 MOTHER G8 BROTHER G8 SISTER Respiratory disorder G8 BROTHER Allergies and Home Medications Allergies Coded Allergies: No Known Drug Allergies (Verified , 12/17/15) Home Medications Cholecalciferol (Vitamin D3) 1,000 Unit Capsule, 1,000 UNIT PO DAILY, (Reported) [place] 3 Polyunsat Fatty Acids 1,000 Mg Cap, 1,000 MG PO DAILY, (Reported) Vitamin E Acetate 400 Unit Capsule, 400 UNIT PO DAILY, (Reported) Patient Home Medication List Home Medication List Reviewed: Yes Physical Exam-Cardiology Physical Exam Vital Signs/I&O 08/23/18 08/23/18 08/23/18 08/23/18 04:00 07:00 08:00 12:00 Temp 99.4 98.2 98.0 Pulse 84 80 82 66 Resp 16 16 20 B/P (MAP) 126/72 (90) 104/58 (73) 127/56 (79) Pulse Ox 93 95 94 O2 Delivery Room Air Room Air Room Air 08/23/18 00:00 Intake Total 730 ml Balance 730 ml Capillary Refill : Less Than 3 SecondsLess Than 3 Seconds Constitutional: AAO x 3, well-developed, other (thin-appearing) HEENT: PERRL, EOMI; No xanthelasmas are seen Neck: carotid pulses are 2 + bilaterally, with good upstrokes Respiratory: No accessory muscle use; other (good bilat air entry) Cardiovascular: regular rate-rhythm, S1 and S2, systolic murmur (soft YAEL at card base) Gastrointestinal: No tender; soft; No guarding, No rebound; audible bowel sounds Extremities: No clubbing, No cyanosis, No significant edema Neurologic/Psychiatric: oriented x 3, grossly intact, power is 5/5 both on sides Skin: No rash on exposed areas, No ulcerations on exposed areas Lymphatic: no adenopathy Data Review Labs Laboratory Tests 08/23/18 05:20: White Blood Count 8.8, Red Blood Count 4.21L, Hemoglobin 12.5, Hematocrit 37, Mean Corpuscular Volume 88, Mean Corpuscular Hemoglobin 30, Mean Corpuscular Hemoglobin Concent 34, Red Cell Distribution Width 12.7, Platelet Count 282, Mean Platelet Volume 9.5, Neutrophils (%) (Auto) 74, Lymphocytes (%) (Auto) 14, Monocytes (%) (Auto) 10, Eosinophils (%) (Auto) 1, Basophils (%) (Auto) 0, Neutrophils # (Auto) 6.5, Lymphocytes # (Auto) 1.3, Monocytes # (Auto) 0.9, Eosinophils # (Auto) 0.1, Basophils # (Auto) 0.0, Sodium Level 136, Potassium Level 4.1, Chloride Level 103, Carbon Dioxide Level 24, Anion Gap 9, Blood Urea Nitrogen 9, Creatinine 0.66, Estimat Glomerular Filtration Rate > 60, BUN/ Creatinine Ratio 14, Glucose Level 106H, Calcium Level 9.0 Microbiology 08/22/18 Urine Culture - Final, Complete NO GROWTH Laboratory Tests 08/22/18 10:55 08/23/18 05:20 A/P-Cardiology Assessment/Admission Diagnosis Syncope of undetermined etiology Fall due to syncope on 08/22/18 leading to scalp hematoma, but no intracranial bleed (per CT head on that day) Thyromegaly seen on CT head of 08/22/18, followed by Dr Pathak Mild dementia Discussion and Recomendations * Echo does not show structural heart disease * Cor ischemia is a possibility, but unlikely (no symptoms) * Needs to be evaluated for cardiac arrhythmia. Keep tele. Consider ILR * Eval orthostatic blood pressure * I discussed her case with Dr Pathak on the phone today Clinical Quality Measures DVT/VTE Risk/Contraindication: Risk Factor Score Per Nursin RFS Level Per Nursing on Admit: 2=Moderate SIERRA REVELES MD FACP FAC CCDS Aug 23, 2018 15:44
--- NOTE | 2018-08-23 16:28 | NUR ---
CM DISCHARGE PLANNING: Family requesting information for assisted living facilities. Information given to patient et family et visited with them about filling out [facility] application for the patient. They voiced appreciation from our visit.
[2018-08-23 16:30] VITALS: BP 114/72
--- NOTE | 2018-08-23 18:22 | History & Physicial ---
History of Present Illness History of Present Illness Reason for visit/HPI This is and 88 year old female who was brought to the emergency room after she sustained a fall in her kitchen after a syncopal episode. She stated that she remembers being in the kitchen making a cake and then everything went black. She apparently has been having these episodes for at least the past 2 months. She does have known dementia but has not been compliant with medications for this and her son does note that her memory has worsened recently and he is concerned about her driving. Date of Admission Aug 22, 2018 at 14:54 Date Seen by a Provider: Aug 23, 2018 Time Seen by a Provider: 12:55 I consulted on this patient on 08/23/18 18:15 Attending Physician Yamilet Pathak DO Admitting Physician Yamilet Pathak DO Consult Allergies and Home Medications Allergies Coded Allergies: No Known Drug Allergies (Verified , 12/17/15) Home Medications Cholecalciferol (Vitamin D3) 1,000 Unit Capsule, 1,000 UNIT PO DAILY, (Reported) [place] 3 Polyunsat Fatty Acids 1,000 Mg Cap, 1,000 MG PO DAILY, (Reported) Vitamin E Acetate 400 Unit Capsule, 400 UNIT PO DAILY, (Reported) Patient Home Medication List Home Medication List Reviewed: Yes Past Weotxag-Btwjbr-Djcjdq Hx Patient Social History Alcohol Use: Denies Use Recreational Drug Use: No Smoking Status: Never a Smoker 2nd Hand Smoke Exposure: No Physical Abuse Screen: No Sexual Abuse: No Recent Foreign Travel: No Contact w/other who traveled: No Recent Hopitalizations: No Recent Infectious Disease Expo: No Immunizations Up To Date Date of Pneumonia Vaccine: Apr 10, 2015 Date of Influenza Vaccine: Apr 10, 2018 Seasonal Allergies Seasonal Allergies: No Surgeries Yes (ABDOMINAL /BOWEL SURGERY FOR CANCER) Abdominal, Bowel Surgery Respiratory No Cardiovascular No Neurological No Reproductive System : No Hx Reproductive Disorders: No Sexually Transmitted Disease: No HIV/AIDS: No 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 Genitourinary No Gastrointestinal Yes (HX COLON CA) Musculoskeletal No Endocrine History of Endocrine Disorders: No HEENT History of HEENT Disorders: Yes HEENT Disorders: Cataract Cancer Yes Colon Did You Recieve Any Treatments: Yes Type of Treatment: Surgical Intervention Psychosocial History of Psychiatric Problem: No Integumentary History of Skin or Integumenta: No Blood Transfusions History of Blood Disorders: No Family Medical History Significant Family History: No Pertinent Family Hx Family Hx: Cardiovascular disease 19 MOTHER G8 BROTHER G8 SISTER Hypertension 19 FATHER 19 MOTHER G8 BROTHER G8 SISTER Respiratory disorder G8 BROTHER Review of Systems Constitutional: No no symptoms reported, No see HPI, No chills, No diaphoresis , No dizziness, No fever, No malaise, No weakness, No weight gain, No weight loss, No other EENTM: No see HPI, No no symptoms reported, No ear discharge, No hearing loss, No ear pain, No blurred vision, No double vision, No eye pain, No tearing, No vision loss, No dental problems, No hoarseness, No mouth pain, No mouth swelling , No epistaxis, No nose congestion, No nose pain, No throat pain, No throat swelling, No other Respiratory: No no symptoms reported, No see HPI, No cough, No dyspnea on exertion, No hemoptysis, No orthopnea, No phlegm, No short of breath, No stridor , No wheezing, No other Cardiovascular: syncope Gastrointestinal: No RUQ, No LUQ, No RLQ, No LLQ, No no symptoms reported, No see HPI, No abdominal pain, No constipation, No diarrhea, No dysphagia, No hematemesis, No heartburn, No jaundice, No loss of appetite, No melena, No nausea, No vomiting, No other Genitourinary: No no symptoms reported, No see HPI, No decreased output, No discharge, No dysuria, No frequency, No hematuria, No hesitancy, No incontinence , No nocturia, No pain, No other Musculoskeletal: back pain (from fall) Skin: lumps (to back of head from fall) Psychiatric/Neurological: Other (memory loss) Physical Exam Vital Signs Vital Signs - First Documented 08/22/18 10:31 Temp 96.2 Pulse 78 Resp 18 B/P (MAP) 134/74 (94) Pulse Ox 96 O2 Delivery Room Air Capillary Refill : Less Than 3 SecondsLess Than 3 Seconds Height, Weight, BMI Height: 5'0.00" Weight: 109lbs. 0.0oz. [id number]; 21.3 BMI Method:Stated General Appearance: No Apparent Distress HEENT: Normal ENT Inspection Neck: Supple Respiratory: Lungs Clear Cardiovascular: Regular Rate, Rhythm Gastrointestinal: Normal Bowel Sounds, Non Tender, Soft Rectal: Deferred Back: No CVA Tenderness Extremity: Non Tender, No Calf Tenderness, No Pedal Edema Neurologic/Psychiatric: Alert, Oriented x3 Skin: Warm/Dry Comments Laboratory Tests 08/23/18 05:20: White Blood Count 8.8, Red Blood Count 4.21L, Hemoglobin 12.5, Hematocrit 37, Mean Corpuscular Volume 88, Mean Corpuscular Hemoglobin 30, Mean Corpuscular Hemoglobin Concent 34, Red Cell Distribution Width 12.7, Platelet Count 282, Mean Platelet Volume 9.5, Neutrophils (%) (Auto) 74, Lymphocytes (%) (Auto) 14, Monocytes (%) (Auto) 10, Eosinophils (%) (Auto) 1, Basophils (%) (Auto) 0, Neutrophils # (Auto) 6.5, Lymphocytes # (Auto) 1.3, Monocytes # (Auto) 0.9, Eosinophils # (Auto) 0.1, Basophils # (Auto) 0.0, Sodium Level 136, Potassium Level 4.1, Chloride Level 103, Carbon Dioxide Level 24, Anion Gap 9, Blood Urea Nitrogen 9, Creatinine 0.66, Estimat Glomerular Filtration Rate > 60, BUN/ Creatinine Ratio 14, Glucose Level 106H, Calcium Level 9.0 Microbiology 08/22/18 Urine Culture - Final, Complete NO GROWTH Assessment/Plan Assessment and Plan 1. Syncopal episode--monitoring on telemetry, ECHO done this AM, will consult cardiology for possible arrhythmia, check carotid dopplers, may need EEG 2. Alzheimer's Dementia--worsening per son but has refused and not been compliant with medication trials in the past, will discuss no driving with the patient Admission Diagnosis Admission Status: Observation Clinical Quality Measures DVT/VTE Risk/Contraindication: Risk Factor Score Per Nursin RFS Level Per Nursing on Admit: 2=Moderate YAMILET PATHAK DO Aug 23, 2018 18:22
[2018-08-23 20:00] VITALS: BP 155/83
--- NOTE | 2018-08-23 20:50 | Progress Note ---
Subjective Date Seen by a Provider: Aug 23, 2018 Time Seen by a Provider: 09:10 Subjective/Events-last exam patient sitting in chair. She has no new complaints. Family at bedside. They feel that she is back to her baseline. She states she is just little bit sore body and some different places but otherwise no significant issues. She denies any nausea vomiting fever sweats chills shortness of breath or chest pain at this time. Objective Exam Vital Signs Date Time Temp Pulse Resp B/P (MAP) Pulse Ox O2 Delivery O2 Flow Rate FiO2 08/23/18 19:00 81 08/23/18 16:30 98.6 73 20 114/72 (86) 96 Room Air 08/23/18 13:00 67 08/23/18 12:00 98.0 66 20 127/56 (79) 94 Room Air 08/23/18 10:30 77 111/55 (73) 81 114/53 (73) 86 94/55 (68) 08/23/18 08:35 95 Room Air 08/23/18 08:00 98.2 82 16 104/58 (73) 95 Room Air 08/23/18 07:00 80 08/23/18 04:00 99.4 84 16 126/72 (90) 93 Room Air 08/23/18 01:00 86 08/22/18 23:50 98.4 08/22/18 23:37 100.9 91 28 117/57 (77) 93 Room Air 08/22/18 21:01 99.9 95 26 117/56 (76) 92 Room Air I & O 08/23/18 06:59 Intake Total 830 ml Output Total 200 ml Balance 630 ml Capillary Refill : Less Than 3 SecondsLess Than 3 Seconds General Appearance: No Apparent Distress HEENT: Normal ENT Inspection (posterior head small hematoma) Neck: Supple Respiratory: Chest Non Tender, No Accessory Muscle Use, No Respiratory Distress Cardiovascular: Regular Rate, Rhythm Gastrointestinal: non tender, soft, no organomegaly Extremity: Non Tender, No Calf Tenderness, No Pedal Edema Neurologic/Psychiatric: Alert (oriented2) Skin: Warm/Dry Results Lab Laboratory Tests 08/23/18 05:20: White Blood Count 8.8, Red Blood Count 4.21L, Hemoglobin 12.5, Hematocrit 37, Mean Corpuscular Volume 88, Mean Corpuscular Hemoglobin 30, Mean Corpuscular Hemoglobin Concent 34, Red Cell Distribution Width 12.7, Platelet Count 282, Mean Platelet Volume 9.5, Neutrophils (%) (Auto) 74, Lymphocytes (%) (Auto) 14, Monocytes (%) (Auto) 10, Eosinophils (%) (Auto) 1, Basophils (%) (Auto) 0, Neutrophils # (Auto) 6.5, Lymphocytes # (Auto) 1.3, Monocytes # (Auto) 0.9, Eosinophils # (Auto) 0.1, Basophils # (Auto) 0.0, Sodium Level 136, Potassium Level 4.1, Chloride Level 103, Carbon Dioxide Level 24, Anion Gap 9, Blood Urea Nitrogen 9, Creatinine 0.66, Estimat Glomerular Filtration Rate > 60, BUN/ Creatinine Ratio 14, Glucose Level 106H, Calcium Level 9.0 Microbiology 08/22/18 Urine Culture - Final, Complete NO GROWTH Assessment/Plan Assessment/Plan Assessment/Plan fall hematoma scalp posteriorly confusion Patient is an 88-year-old female with fall patient workup for any significant acute trauma negative patient was having some confusion and eye fluttering In the emergency department then admitted. Currently patient is alert and oriented x2 and not having any difficulties. family states that this is at her baseline. No surgical intervention needed at this time. Medical management. We will sign off call if needed please Clinical Quality Measures DVT/VTE Risk/Contraindication: Risk Factor Score Per Nursin RFS Level Per Nursing on Admit: 2=Moderate RAHEL HAREPR DO Aug 23, 2018 20:50
[2018-08-24] VITALS: BP 117/65
[2018-08-24 04:36] VITALS: BP 137/60
[2018-08-24] MEDS: CATHETER FLUSH 10 ML SYR IV SCH ×2 (05:52→14:52)
[2018-08-24 08:00] VITALS: BP 133/61
--- NOTE | 2018-08-24 09:40 | NUR ---
NPO PER DR. REVELES.
--- NOTE | 2018-08-24 09:50 | Progress Note-Cardiology ---
Cardiology SOAP Progress Note Subjective: Denies any c/o CP, palpitations, syncope or near syncope. Objective: I&O/Vital Signs 08/24/18 08/24/18 08/24/18 08/24/18 04:36 07:39 08:00 11:40 Temp 98.0 98.8 Pulse 80 75 77 75 86 91 Resp 16 18 B/P (MAP) 137/60 (85) 133/61 (85) 124/60 (81) 125/59 (81) 123/56 (78) Pulse Ox 94 93 O2 Delivery Room Air Room Air 08/23/18 23:59 Intake Total 750 ml Output Total 600 ml Balance 150 ml Weight (Pounds): 109 Weight (Ounces): 0.0 Weight (Calculated Kilograms): 49.364451 Constitutional: AAO x 3, well-developed, other (thin-appearing) Respiratory: No accessory muscle use; other (good bilat air entry) Cardiovascular: regular rate-rhythm, S1 and S2, systolic murmur (soft YAEL at card base) Gastrointestional: No tender; soft; No guarding, No rebound; audible bowel sounds Extremities: No clubbing, No cyanosis, No significant edema Neurologic/Psychiatric: oriented x 3, grossly intact, power is 5/5 both on sides Skin: No rash on exposed areas, No ulcerations on exposed areas Results/Procedures: Labs Microbiology 08/22/18 Urine Culture - Final, Complete NO GROWTH A/P: Assessment: Syncope of undetermined etiology Fall due to syncope on 08/22/18 leading to scalp hematoma, but no intracranial bleed (per CT head on that day) Thyromegaly seen on CT head of 08/22/18, followed by Dr Pathak Mild dementia Plan: * Needs to be evaluated for cardiac arrhythmia. Keep tele. We advise ILR implant * Procedure has been explained, she provides informed consent * Eval orthostatic blood pressure * Continue current regimen Physician Assessment Physician Assessment No cp or palp or syncope (since admission). No shortness of breath Lungs: good bilat air entry Cor: reg Ext: no c/c/e A&R * As documented in our note above that I updated (italics) and as noted below * I had a long and detailed discussion with her regarding potential etiologies and our recommendation of ILR. I discussed with with Dr Pathak and with patient's son. The pt and her son provided informed consent and the device was placed (see report) * Outpt f/u is advised [employer]WO[facility] LOPEZ [employer]ENT Aug 24, 2018 09:50 SIERRA REVELES MD [facility] Aug 24, 2018 15:01
--- NOTE | 2018-08-24 10:50 | NUR ---
LOOP RECORDER SCHEDULED [facility]RU [facility]. SON NOTIFIED.
[2018-08-24 11:40] VITALS: BP_SYST 123; BP_SYST 124; BP_SYST 125; BP_DIAS 56; BP_DIAS 59; BP_DIAS 60
--- NOTE | 2018-08-24 11:54 | NUR ---
CM/JOS spoke with the patient and her son (Edy) about a safe discharge plan. He was wanting to talk with before he knew for sure what his mother would need. Edy did stated that he has taken the keys away from Amanda. Will follow up with them again after they see
[2018-08-24 12:00] VITALS: BP 136/68
--- NOTE | 2018-08-24 12:30 | NUR ---
CONSENT SIGNED BY SON AFTER HE SPOKE WITH DR. REVELES. MRSA NASAL SWAB DONE.
--- NOTE | 2018-08-24 13:00 | NUR ---
LOOP RECORDER DONE AT BEDSIDE. AWAISG D/I CHEST.
--- NOTE | 2018-08-24 15:32 | OPERATIVE REPORT ---
DATE OF SERVICE: 08/24/2018 PREOPERATIVE DIAGNOSIS: Syncope. POSTOPERATIVE DIAGNOSIS: Syncope. PROCEDURE: Implantable loop recorder implantation. DESCRIPTION OF PROCEDURE: The patient is an 88-year-old lady with syncope of undetermined etiology. We discussed implantation of an implantable loop recorder to evaluate for arrhythmia. She and her son provided informed consent. The left prepectoral area was prepared and draped in the usual sterile fashion. Lidocaine 1% was used for local anesthesia. The tools provided with the implantable loop recorder were used to make a subcutaneous pocket anterior to the fourth intercostal space on the left side. In the subcutaneous pocket, the device was placed. This is a [employer] Reveal LINQ device with serial number [id number]. The edges were closed using Dermabond and Steri-Strips. She tolerated the procedure well. Job ID: [id number] DocumentID: [id number] Dictated Date: 08/24/2018 13:37:47 Air Saw Operator Date: 08/24/2018 15:31:59 Dictated By: SIERRA REVELES MD, MA, FACP, FACC,
--- NOTE | 2018-08-24 15:52 | Discharge Inst-Simple/Standard ---
Discharge Inst-Standard Patient Instructions/Follow Up Plan of Care/Instructions/FU: Fwup 2 weeks Activity as Tolerated: Yes Discharge Diet: No Restrictions Planned Outpatient Orders/Ref. EEG JODEE GURROLA DO Aug 24, 2018 15:52
--- NOTE | 2018-08-24 16:21 | NUR ---
DC ORDERS REC'D. DC'D PER WC WITH SON AFTER IV AND TELEMETRY DC'D. [employer] DEVICE SENT WITH SON AND VERBALIZED UNDERSTANDING OF USE.
--- NOTE | 2018-08-24 19:03 | Discharge Summary ---
Diagnosis/Chief Complaint Date of Admission Aug 22, 2018 at 13:30 Date of Discharge Aug 24, 2018 at 16:20 Discharge Date: Aug 24, 2018 Discharge Diagnosis 1. Syncope 2. Alzheimer's Dementia 3. Fall with Head trauma 4. Left Hip Contusion Reason Hospital Visit This is and 88 year old female who was brought to the emergency room after she sustained a fall in her kitchen after a syncopal episode. She stated that she remembers being in the kitchen making a cake and then everything went black. She apparently has been having these episodes for at least the past 2 months. She does have known dementia but has not been compliant with medications for this and her son does note that her memory has worsened recently and he is concerned about her driving. Discharge Summary Hospital Course Hospital Course This is and 88 year old female who was brought to the emergency room after she sustained a fall in her kitchen after a syncopal episode. She stated that she remembers being in the kitchen making a cake and then everything went black. She apparently has been having these episodes for at least the past 2 months. She does have known dementia but has not been compliant with medications for this and her son does note that her memory has worsened recently and he is concerned about her driving. She was admitted to the medical floor and monitored on telemetry and remained in a normal sinus rhythm. She underwent carotid dopplers which showed minimal plaque. She also underwent echocardiogram and cardiology evaluation. Cardiology suggested and implantable loop recorder to rule out arrhythmia and the patient underwent this the day of discharge. We also discussed possible seizure episodes being the cause of her syncope so she will be scheduled as an outpatient for an EEG at [facility] in [place]. Surgery trauma was also consulted due to her head trauma but the patient's hematoma remained stable and her only complaint was of some minor left hip pain. Her son was taking her home under his care and she will followup with me in my office in 2 weeks as well as cardiology. I did instruct the patient on no driving. Labs Laboratory Tests 08/22/18 10:55: White Blood Count 13.6H, Neutrophils (%) (Auto) 83H, Lymphocytes (%) (Auto) 9L, Neutrophils # (Auto) 11.3H, Glucose Level 151H 08/22/18 11:22: Urine Protein 1+H, Urine Leukocyte Esterase 1+H, Urine Hyaline Casts 10-25H, Urine Mucus SMALLH 2/13/19 05:20: Glucose Level 106H, Red Blood Count 4.21L Procedures None. Discharge Physical Examination Allergies: Coded Allergies: No Known Drug Allergies (Verified , 12/17/15) Vitals & I&Os Vital Signs Date Time Temp Pulse Resp B/P (MAP) Pulse Ox O2 Delivery O2 Flow Rate FiO2 08/24/18 13:27 95 08/24/18 12:00 99.2 20 136/68 (90) 93 Room Air General Appearance: Alert, Cooperative, No Acute Distress Respiratory: Clear to Auscultation Cardiovascular: Regular Rate Abdominal: Normal Bowel Sounds, Soft, No Tenderness Extremities: No Clubbing, No Cyanosis, No Edema Psych/Mental Status: Mood NL Discharge Home Medications Reviewed and agree with Discharge Medication list on patient's Discharge Instruction sheet Instructions to Patient/Family Please see electronic discharge instructions given to patient. Clinical Quality Measures DVT/VTE Risk/Contraindication: Risk Factor Score Per Nursin RFS Level Per Nursing on Admit: 2=Moderate JODEE GURROLA DO Aug 24, 2018 19:03
== END 2018-08-24 15:51 | disposition home or self-care (01) ==
LOC: EDUNIT# 10:31 → ER 10:34 → 4TH 13:30 → UNDOADMOB 14:54 → UNDODISOB 08-24 16:20
PROVIDERS: ADMIT Family Medicine; ATTEND Family Medicine
DX: R55 Syncope and collapse (principal); S00.03XA Contusion of scalp, initial encounter; S70.02XA Contusion of left hip, initial encounter; S30.0XXA Contusion of lower back and pelvis, initial encounter; G30.9 Alzheimer's disease, unspecified; F02.80 Dementia in other diseases classified elsewhere, unspecified severity, without behavioral disturbance, psychotic disturbance, mood disturbance, and anxiety; E01.0 Iodine-deficiency related diffuse (endemic) goiter; Z66 Do not resuscitate; R82.998 Other abnormal findings in urine; W19.XXXA Unspecified fall, initial encounter; Y92.010 Kitchen of single-family (private) house as the place of occurrence of the external cause; Y93.G3 Activity, cooking and baking; Z91.19 Patient's noncompliance with other medical treatment and regimen; Z85.038 Personal history of other malignant neoplasm of large intestine
CPT/HCPCS: 33285; 36415; 51701; 70450; 72125; 72131; 72170; 80048; 80053; 81000; 83036; 84443; 85025; 87081; 87088; 93005; 93306; 93880

== ENCOUNTER → 2018-09-22 | Outpatient (CLI) | payer MEDICARE ==
[~2018-09-22] MED LIST changes: +CHOL10007 PO; +VITA400C60 PO
--- NOTE | 2018-09-22 11:17 | Diagnostic Imaging Report ---
INDICATION: Cough and dyspnea for one month. Time of exam: 10:35 AM Comparison is made with prior chest from 06/30/2017. Heart size is stable. Cardiac monitoring device overlies the heart. There is calcified nodule in the right midlung consistent with a granuloma. No infiltrate, effusion or pneumothorax is seen. IMPRESSION: No acute cardiopulmonary process is detected. Dictated by: Dictated on workstation # [id number]
== END ==
LOC: RAD 10:11
PROVIDERS: ATTEND Family Medicine
DX: R06.00 Dyspnea, unspecified (principal); R05 Cough
CPT/HCPCS: 71045

== ENCOUNTER → 2018-09-25 | Outpatient (CLI) | payer MEDICARE ==
[2018-09-25 15:25] LABS: BASOPHILS % (AUTO) 0 % (0-10); EOSINOPHILS # (AUTO) 0.1 10^3/uL (0.0-0.3); EOSINOPHILS % (AUTO) 1 % (0-10); HEMATOCRIT 44 % (35-52); HEMOGLOBIN 14.4 G/DL (11.5-16.0); LYMPHOCYTES % (AUTO) 31 % (12-44); MEAN CORPUSCULAR HEMOGLOBIN 29 PG (25-34); MEAN CORPUSCULAR HGB CONC 33 G/DL (32-36); MEAN CORPUSCULAR VOLUME 89 FL (80-99); MEAN PLATELET VOLUME 9.4 FL (7.4-10.4); MONOCYTES # (AUTO) 0.8 X 10^3 (0.0-1.0); MONOCYTES % (AUTO) 12 % (0-12); NEUTROPHILS # (AUTO) 3.7 X 10^3 (1.8-7.8); NEUTROPHILS % (AUTO) 56 % (42-75); PLATELET COUNT 358 10^3/uL (130-400); RED CELL DISTRIBUTION WIDTH 13.3 % (10.0-14.5); WHITE BLOOD COUNT 6.5 10^3/uL (4.3-11.0)
[2018-09-25 15:47] LABS: ALANINE AMINOTRANSFERASE 47 U/L (0-55); ALBUMIN 3.8 GM/DL (3.2-4.5); ALKALINE PHOSPHATASE 97 U/L (40-136); BILIRUBIN,TOTAL 0.4 MG/DL (0.1-1.0); BUN/CREATININE RATIO 22; CALCIUM 9.6 MG/DL (8.5-10.1); CARBON DIOXIDE 22 MMOL/L (21-32); CHLORIDE 103 MMOL/L (98-107); CREATININE SERUM 0.76 MG/DL (0.60-1.30); GFR ESTIMATED > 60; GLUCOSE 115 MG/DL (70-105); POTASSIUM 4.2 MMOL/L (3.6-5.0); SODIUM 137 MMOL/L (135-145)
== END ==
LOC: LAB 15:02
PROVIDERS: ATTEND Family Medicine
DX: R53.83 Other fatigue (principal); R19.7 Diarrhea, unspecified
CPT/HCPCS: 36415; 80053; 85025

== ENCOUNTER 2018-12-16 08:07 | Emergency (ER) | payer MEDICARE, MEDICAID ==
[~2018-12-16] VITALS: Ht 152.4 cm; Wt 49.4 kg
--- OUTSIDE RECORDS SUMMARY | 2018-12-16 08:18 | XMS REPORT | Continuity of Care Document ---
Author Organization Unknown Address Unknown Allergies Active Description Code Type Severity Reaction Onset Reported/Identified Relationship to Patient Clinical Status Yes No Known Drug Allergies [id number] Drug Allergy Unknown N/A 12/17/2015 Medications There [...] Ot E916 STRUCK BY FALLING OBJECT 12/06/2014 ROSALES PONCE, DANIEL Ot 153.4 12/06/2014 ROSALES PONCE, DANIEL Ot 197.4 12/06/2014 ROSALES PONCE, DANIEL Ot 197.6 12/06/2014 ROSALES PONCE, DANIEL Ot 285.9 12/06/2014 ROSALES PONCE, DANIEL Ot 287.49 12/06/2014 ROSALES PONCE, ERICKI Ot V10.44 12/06/2014 ROSALES PONCE, ERICKI Ot 153.4 12/06/2014 ROSALES PONCE, ERICKI Ot 197.4 12/06/2014 ROSALES PONCE, DERECKAAKI Ot 197.6 12/06/2014 ROSALES PONCE, DERECKAAKI Ot 285.9 12/06/2014 ROSALES PONCE, TAKAAKI Ot 287.49 12/06/2014 ROSALES PONCE, ERICKI Ot V10.44 12/09/2014 ROSALES PONCE, ERICKI Ot 153.4 12/09/2014 ROSALES PONCE, TAKAAKI Ot 197.4 12/09/2014 DANIEL CABA MD Ot 197.6 12/09/2014 ROSALES PONCE, DANIEL Ot 285.9 12/09/2014 ROSALES PONCE, DANIEL Ot 287.49 12/09/2014 DANIEL CABA MD Ot V10.44 12/09/2014 ROSALES PONCE, DANIEL Ot 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 12/09/2014 ROSALES PONCE, DANIEL Ot 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 12/09/2014 ROSALES PONCE, DANIEL Ot 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 12/09/2014 ROSALES PONCE, DANIEL Ot 285.9 ANEMIA NOS 12/09/2014 ROSALES PONCE, DANIEL Ot 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 12/09/2014 DANIEL CABA MD Ot 401.9 HYPERTENSION NOS 12/09/2014 ROSALES PONCE, DANIEL Ot 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 12/23/2014 DANIEL CABA MD Ot 569.9 12/23/2014 DANIEL CABA MD Ot 791.9 12/23/2014 ROSALES PONCE, DANIEL Ot V72.63 12/23/2014 ROSALES PONCE, DANIEL Ot V72.83 12/23/2014 ROSALES PONCE, DANIEL Ot V74.8 01/13/2015 SHANIQUE PONCE, KRISTINA Najera Ot 153.4 01/13/2015 SHANIQUE PONCE, KRISTINA K Ot 238.71 01/13/2015 SHANIQUE PONCE, KRISTINA Najera Ot 280.9 01/13/2015 SHANIQUE PONCE, KRISTINA K [...] KRISTINA K Ot 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 03/24/2015 SHANIQUE PONCE, KRISTINA K Ot 280.9 IRON DEFIC ANEMIA NOS 03/24/2015 SHANIQUE PONCE, KRISTINA Dania Ot 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 03/24/2015 SHANIQUE PONCE, KRISTINA Najera Ot V12.01 PERSONAL HISTORY OF TUBERCULOSIS 03/24/2015 SHANIQUE PONCE, KRISTINA Dania Ot V58.69 OTH MED,LT,CURRENT USE 12/16/2015 ROSALES PONCE, DANIEL Beebe Z01.818 ENCOUNTER FOR OTHER PREPROCEDURAL EXAMIN 12/16/2015 DANIEL CABA MD, Ot Z85.038 PERSONAL HISTORY OF MALIGNANT NEOPLASM O 12/17/2015 DANIEL CABA MD Ot Z01.818 ENCOUNTER FOR OTHER PREPROCEDURAL EXAMIN 12/17/2015 DANIEL CABA MD, Ot Z85.038 PERSONAL HISTORY OF MALIGNANT NEOPLASM O 12/17/2015 SHANIQUE PONCE, KRISTINA Najera Ot 153.4 12/17/2015 SHANIQUE PONCE, KRISTINA Dania Ot 238.71 12/17/2015 SHANIQUE PONCE, KRISTINA Dania Ot 280.9 12/17/2015 SHANIQUE PONCE, KRISTINA Dania Ot 515 12/17/2015 SHANIQUE PONCE, KRISTINA Najera Ot V12.01 12/17/2015 SHANIQUE PONCE, KRISTINA Dania Ot V58.69 12/17/2015 DANIEL CABA MD Ot K57.90 DVRTCLOS OF INTEST, PART UNSP, [...] K64.1 SECOND DEGREE HEMORRHOIDS 12/23/2015 DANIEL CABA MD Ot Z08 ENCNTR FOR FOLLOW-UP EXAM AFTER TRTMT FO 12/23/2015 DANIEL CABA MD, Ot Z85.038 PERSONAL HISTORY OF MALIGNANT NEOPLASM O 06/08/2016 Ot 789.00 ABDOMINAL PAIN, UNSPECIFIED SITE 06/08/2016 Ot 959.12 OTH INJURY OF ABDOMEN 06/08/2016 Ot E000.8 OTHER EXTERNAL CAUSE STATUS 06/08/2016 Ot E849.0 ACCIDENT IN HOME 06/08/2016 Ot E888.9 FALL NOS 06/08/2016 ROSALES PONCE, DNAIEL Ot 569.9 INTESTINAL DISORDER NOS 06/08/2016 ROSALES PONCE, DANIEL Ot 791.9 ABN URINE FINDINGS NEC 06/08/2016 ROSALES PONCE, DANIEL Ot V72.63 PRE-PROCEDURAL LABORATORY EXAMINATION 06/08/2016 DANIEL CABA MD, Ot V72.83 EXAM PRE-OPERATIVE NEC 06/08/2016 DANIEL CABA MD Ot V74.8 SCREEN-BACTERIAL DIS NEC 06/08/2016 SHANIQUE PONCE, KRISTINA Najera Ot 153.4 06/08/2016 SHANIQUE PONCE, KRISTINA Najera Ot 238.71 06/08/2016 SHANIQUE PONCE, KRISTINA Najera Ot 280.9 06/08/2016 SHANIQUE PONCE, KRISTINA Dania Ot 515 06/08/2016 SHANIQUE PONCE, KRISTINA Dania Ot V12.01 06/08/2016 SHANIQUE PONCE, KRISTINA Dania Ot V58.69 06/09/2016 DENIS CHAWLA MEAT CLERK Ot R07.9 CHEST PAIN, UNSPECIFIED 06/17/2016 DENIS CHAWLA MEAT CLERK Ot R07.9 CHEST PAIN, UNSPECIFIED 07/30/2016 JENNIFER [...] J44.9 CHRONIC OBSTRUCTIVE PULMONARY DISEASE, U 11/04/2017 DANIEL CABA MD Ot 569.9 INTESTINAL DISORDER NOS 11/04/2017 DANIEL CABA MD Ot 791.9 ABN URINE FINDINGS NEC 11/04/2017 DANIEL CABA MD Ot V72.63 PRE-PROCEDURAL LABORATORY EXAMINATION 11/04/2017 DANIEL CABA MD Ot V72.83 EXAM PRE-OPERATIVE NEC 11/04/2017 DANIEL CABA MD Ot V74.8 SCREEN-BACTERIAL DIS NEC 11/04/2017 SHANIQUE PONCE, KRISTINA Najera Ot 153.4 11/04/2017 SHANIQUE PONCE, KRISTINA Najera Ot 238.71 11/04/2017 SHANIQUE PONCE, KRISTINA Najera Ot 280.9 11/04/2017 SHANIQUE PONCE, KRISTINA Najera Ot 515 11/04/2017 SHANIQUE PONCE, KRISTINA Najera Ot V12.01 11/04/2017 SHANIQUE PONCE, KRISTINA Najera Ot V58.69 11/04/2017 DENIS CHAWLA MEAT CLERK Ot R07.9 CHEST PAIN, UNSPECIFIED 11/04/2017 EDI CHANDLER APRN Ot J44.9 CHRONIC OBSTRUCTIVE PULMONARY DISEASE, U 11/09/2017 JODEE GURROLA DO S Ot I67.81 ACUTE CEREBROVASCULAR INSUFFICIENCY 11/09/2017 JODEE GURROLA DO S Ot I67.82 CEREBRAL ISCHEMIA 11/18/2017 JODEE GURROLA DO S Ot I67.81 ACUTE CEREBROVASCULAR INSUFFICIENCY 11/18/2017 JODEE GURROLA DO S Ot I67.82 CEREBRAL ISCHEMIA 08/24/2018 JODEE GURROLA DO S Ot E01.0 IODINE-DEFICIENCY RELATED DIFFUSE (ENDEM 08/24/2018 KAVITANDER DO, JODEE S Ot F02.80 DEMENTIA IN [facility] DISEASES CLASSD ELSWHR W 08/24/2018 KAVITANDER DOJODEE S Ot G30.9 ALZHEIMER'S DISEASE, UNSPECIFIED 08/24/2018 KAVITANDDIAMOND CAVAZOS DOLINE S Ot R55 SYNCOPE AND COLLAPSE 08/24/2018 JODEE GURROLA DO S Ot R82.998 OTHER ABNORMAL FINDINGS IN URINE 08/24/2018 DIAMOND GURROLA DOLINE S Ot S00.03XA CONTUSION OF SCALP, INITIAL ENCOUNTER 08/24/2018 JODEE GURROLA DO S Ot S30.0XXA CONTUSION OF LOWER BACK AND PELVIS, INIT 08/24/2018 JODEE GURROLA DO S Ot S70.02XA CONTUSION OF LEFT HIP, INITIAL ENCOUNTER 08/24/2018 JODEE GURROLA DO S Ot W19.XXXA UNSPECIFIED FALL, INITIAL ENCOUNTER 08/24/2018 JODEE GURROLA DO S Ot Y92.010 KITCHEN OF SINGLE-FAMILY (PRIVATE) HOUSE 08/24/2018 DIAMOND GURROLA DOLINE S Ot Y93.G3 ACTIVITY, COOKING AND BAKING 08/24/2018 DIAMOND GURROLA DOLINE S Ot Z66 DO NOT RESUSCITATE 08/24/2018 DIAMOND GURROLA DOLINE S Ot Z85.038 PERSONAL HISTORY OF MALIGNANT NEOPLASM O 08/24/2018 DIAMOND GURROLA DOLINE S Ot Z91.19 PATIENT'S NONCOMPLIANCE W [facility] MEDICAL TR 09/24/2018 KAVITANDER DIAMOND REEDLINE S Ot R05 COUGH 09/24/2018 KAVITANDER DODIAMONDJODEE S Ot R06.00 DYSPNEA, UNSPECIFIED 09/26/2018 KAVITANDER DODIAMONDJODEE S Ot R19.7 DIARRHEA, UNSPECIFIED 09/26/2018 KAVITANDER DODIAMONDJODEE S Ot R53.83 OTHER FATIGUE 10/03/2018 KAVITANDER DODIAMONDJODEE S Ot R05 COUGH 10/03/2018 KAVITANDER DO, JODEE S Ot R06.00 DYSPNEA, UNSPECIFIED 10/10/2018 KAVITANDDIAMOND CAVAZOS DOLINE S Ot R19.7 DIARRHEA, UNSPECIFIED 10/10/2018 JODEE GURROLA DO S Ot R53.83 OTHER FATIGUE Procedures Code Description Performed By Performed On 38.93 VENOUS CATHETERIZATION NEC 12/05/2014 45.62 PART SM BOWEL RESECT NEC 12/05/2014 45.73 OPEN AND OTHER RIGHT HEMICOLECTOMY 12/05/2014 45.93 [id number] BOWEL NEC 12/05/2014 Results Test Result Range Serum or plasma troponin i.cardiac measurement (mass/volume) - 06/08/16 12:00 Serum or plasma troponin i.cardiac measurement (mass/volume) < ng/mL <0.30 PT panel in platelet poor plasma [...] Serum or plasma aspartate aminotransferase measurement (enzymatic activity/volume) 24 U/L 5-34 Serum or plasma alanine aminotransferase measurement (enzymatic activity/volume) 18 U/L 0-55 Serum or plasma protein measurement (mass/volume) 7.4 g/dL 6.4-8.2 Serum or plasma albumin measurement (mass/volume) 4.3 g/dL 3.2-4.5 Magnesium - 07/30/16 19:45 Magnesium 2.3 mg/dL 1.8-2.4 Serum or plasma creatine kinase measurement (enzymatic activity/volume) - 07/30/16 19:45 Serum or plasma creatine kinase measurement [...] Automated erythrocyte mean corpuscular hemoglobin concentration measurement (mass/volume) 35 g/dL 32-36 Automated erythrocyte distribution width ratio 12.4 % 10.0- 14.5 Automated blood platelet count (count/volume) 290 10*3/uL [...] Blood monocytes automated count (number/volume) 1.3 10*3 0.0- 1.0 Automated eosinophil count 0.4 10*3/uL 0.0-0.3 Automated blood basophil count (count/volume) 0.0 10*3/uL 0.0-0.1 Manual blood segmented neutrophils/100 leukocytes 47 % NR Blood band neutrophils/100 leukocytes 0 % NR Manual blood lymphocytes/100 leukocytes 39 % NRG Manual eosinophils/100 leukocytes in nose 5 % NRG Manual blood basophils/100 leukocytes 0 % NR Blood erythrocyte morphology finding identification NORMAL NRG Serum or plasma creatine kinase MB measurement (enzymatic activity/volume) - 07/30/16 19:45 Serum or plasma creatine kinase MB measurement (enzymatic activity/volume) 2.8 ng/mL <6.6 Serum or plasma troponin i.cardiac measurement (mass/volume) - 07/30/16 19:45 Serum or plasma troponin i.cardiac measurement (mass/volume) < ng/mL <0.30 Serum or plasma lithium measurement (moles/volume) - 07/30/16 19:45 BNP level 81.9 pg/mL <100.0 Influenza virus A and B antigen detection - 07/30/16 20:00 FLU RESULT NEGATIVE FOR INFLUENZA A AND B ANTIGENS BY IA [facility] Blood lactic acid measurement (moles/volume) - 07/30/16 20:00 Blood lactic acid measurement (moles/volume) 1.0 mmol/L 0.5- 2.0 Bacterial blood culture - 07/30/16 20:00 QUANTITY OF GROWTH Isolated [facility] Bacterial blood culture [id number] [facility] Bacterial blood culture - 07/30/16 20:16 Bacterial blood culture [facility] Complete blood count (CBC) with automated white [...] Automated erythrocyte mean corpuscular hemoglobin concentration measurement (mass/volume) 33 g/dL 32-36 Automated erythrocyte distribution width ratio 12.5 % 10.0- 14.5 Automated blood platelet count (count/volume) 267 10*3/uL [...] Blood monocytes automated count (number/volume) 1.0 10*3 0.0- 1.0 Automated eosinophil count 0.4 10*3/uL 0.0-0.3 Automated [...] Serum or plasma aspartate aminotransferase measurement (enzymatic activity/volume) 23 U/L 5-34 Serum or plasma alanine aminotransferase measurement (enzymatic activity/volume) 19 U/L 0-55 Serum or plasma protein measurement (mass/volume) 7.3 g/dL 6.4-8.2 Serum or plasma albumin measurement (mass/volume) 4.1 g/dL 3.2-4.5 Magnesium - 04/29/17 20:36 Magnesium 2.1 mg/dL 1.8-2.4 Serum or plasma creatine kinase measurement (enzymatic activity/volume) - 04/29/17 20:36 Serum or plasma creatine kinase measurement (enzymatic activity/volume) 84 U/L 29-168 Serum or plasma creatine kinase MB measurement (enzymatic activity/volume) - 04/29/17 20:36 Serum or plasma creatine kinase MB measurement (enzymatic activity/volume) 2.0 ng/mL <6.6 Serum or plasma troponin i.cardiac measurement (mass/volume) - 04/29/17 20:36 Serum or plasma troponin i.cardiac measurement (mass/volume) < ng/mL <0.30 Serum or plasma lithium measurement (moles/volume) - 04/29/17 20:36 BNP level 74.0 pg/mL <100.0 Complete blood count (CBC) with automated white blood cell (WBC) differential - 08/22/18 10:55 Blood leukocytes automated count (number/volume) 13.6 10*3/uL 4.3-11.0 Blood erythrocytes automated count (number/volume) 4.71 10*6/uL 4.35-5.85 Venous blood hemoglobin measurement (mass/volume) 13.8 g/dL 11.5-16.0 Blood hematocrit (volume fraction) 42 % 35-52 Automated erythrocyte mean corpuscular volume 89 [foz_us] 80-99 Automated erythrocyte mean corpuscular hemoglobin (mass per erythrocyte) 29 pg 25-34 Automated erythrocyte mean corpuscular hemoglobin concentration measurement (mass/volume) 33 g/dL 32-36 Automated erythrocyte distribution width ratio 12.9 % 10.0- 14.5 Automated blood platelet count (count/volume) 311 10*3/uL 130-400 Automated blood platelet mean volume measurement 9.5 [foz_us] 7.4-10.4 Automated blood neutrophils/100 leukocytes 83 % 42-75 Automated blood lymphocytes/100 leukocytes 9 % 12-44 Blood monocytes/100 leukocytes 7 % 0-12 Automated blood eosinophils/100 leukocytes 0 % 0-10 Automated blood basophils/100 leukocytes 0 % 0-10 Blood neutrophils automated count (number/volume) 11.3 10*3 1.8-7.8 Blood lymphocytes automated count (number/volume) 1.2 10*3 1.0-4.0 Blood monocytes automated count (number/volume) 1.0 10*3 0.0- 1.0 Automated eosinophil count 0.1 10*3/uL 0.0-0.3 Automated blood basophil count (count/volume) 0.0 10*3/uL 0.0-0.1 Comprehensive metabolic panel - 08/22/18 10:55 Serum or plasma sodium measurement (moles/volume) 137 mmol/L 135-145 Serum or plasma potassium measurement (moles/volume) 4.3 mmol/L 3.6-5.0 Serum or plasma chloride measurement (moles/volume) 100 mmol/L 98-107 Carbon dioxide 29 mmol/L 21-32 Serum or plasma anion gap determination (moles/volume) 8 mmol/L 5-14 Serum or plasma urea nitrogen measurement (mass/volume) 13 mg/dL 7-18 Serum or plasma creatinine measurement (mass/volume) 0.84 mg/dL 0.60-1.30 Serum or plasma urea nitrogen/creatinine mass ratio 15 NRG Serum or plasma creatinine measurement with calculation of estimated glomerular filtration rate > NRG Serum or plasma glucose measurement (mass/volume) 151 mg/dL 70-105 Serum or plasma calcium measurement (mass/volume) 9.7 mg/dL 8.5-10.1 Serum or plasma total bilirubin measurement (mass/volume) 0.4 mg/dL 0.1-1.0 Serum or plasma alkaline phosphatase measurement (enzymatic activity/volume) 65 U/L 40-136 Serum or plasma aspartate aminotransferase measurement (enzymatic activity/volume) 28 U/L 5-34 Serum or plasma alanine aminotransferase measurement (enzymatic activity/volume) 21 U/L 0-55 Serum or plasma protein measurement (mass/volume) 7.1 g/dL 6.4-8.2 Serum or plasma albumin measurement (mass/volume) 3.9 g/dL 3.2-4.5 CALCIUM CORRECTED 9.8 mg/dL 8.5-10.1 THYROID STIMULATING HORMONE - 08/22/18 10:55 THYROID STIMULATING HORMONE 0.84 u[iU]/mL 0.35-4.94 Complete urinalysis with reflex to culture - 08/22/18 11:22 Urine color determination YELLOW NRG Urine clarity determination CLEAR NRG Urine pH measurement by test strip 6.5 5-9 Specific gravity of urine by test strip 1.020 1.016-1.022 Urine protein assay by test strip, semi-quantitative 1+ NEGATIVE Urine glucose detection by automated test strip NEGATIVE NEGATIVE Erythrocytes detection in urine sediment by light microscopy NEGATIVE NEGATIVE Urine ketones detection by automated test strip NEGATIVE NEGATIVE Urine nitrite detection by test strip NEGATIVE NEGATIVE Urine total bilirubin detection by test strip NEGATIVE NEGATIVE Urine urobilinogen measurement by automated test strip (mass/volume) NORMAL NORMAL Urine leukocyte esterase detection by dipstick 1+ NEGATIVE Automated urine sediment erythrocyte count by microscopy (number/high power field) NONE NRG Automated urine sediment leukocyte count by microscopy (number/high power field) [HPF] NRG Bacteria detection in urine sediment by light microscopy TRACE NRG Squamous epithelial cells detection in urine sediment by light microscopy RARE NRG Crystals detection in urine sediment by light microscopy NONE NRG Casts detection in urine sediment by light microscopy PRESENT NRG Mucus detection in urine sediment by light microscopy SMALL NRG Complete urinalysis with reflex to culture YES NRG Hyaline casts detection in urine sediment by light microscopy 10-25 NRG Granular casts detection in urine sediment by light microscopy RARE NRG Bacterial urine culture - 08/22/18 11:22 Bacterial urine culture NG NRG Complete blood count (CBC) with automated white blood cell (WBC) differential - 08/23/18 05:20 Blood leukocytes automated count (number/volume) 8.8 10*3/uL 4.3-11.0 Blood erythrocytes automated count (number/volume) 4.21 10*6/uL 4.35-5.85 Venous blood hemoglobin measurement (mass/volume) 12.5 g/dL 11.5-16.0 Blood hematocrit (volume fraction) 37 % 35-52 Automated erythrocyte mean corpuscular volume 88 [foz_us] 80-99 Automated erythrocyte mean corpuscular hemoglobin (mass per erythrocyte) 30 pg 25-34 Automated erythrocyte mean corpuscular hemoglobin concentration measurement (mass/volume) 34 g/dL 32-36 Automated erythrocyte distribution width ratio 12.7 % 10.0- 14.5 Automated blood platelet count (count/volume) 282 10*3/uL 130-400 Automated blood platelet mean volume measurement 9.5 [foz_us] 7.4-10.4 Automated blood neutrophils/100 leukocytes 74 % 42-75 Automated blood lymphocytes/100 leukocytes 14 % 12-44 Blood monocytes/100 leukocytes 10 % 0-12 Automated blood eosinophils/100 leukocytes 1 % 0-10 Automated blood basophils/100 leukocytes 0 % 0-10 Blood neutrophils automated count (number/volume) 6.5 10*3 1.8-7.8 Blood lymphocytes automated count (number/volume) 1.3 10*3 1.0-4.0 Blood monocytes automated count (number/volume) 0.9 10*3 0.0- 1.0 Automated eosinophil count 0.1 10*3/uL 0.0-0.3 Automated blood basophil count (count/volume) 0.0 10*3/uL 0.0-0.1 Whole blood basic metabolic panel - 08/23/18 05:20 Serum or plasma sodium measurement (moles/volume) 136 mmol/L 135-145 Serum or plasma potassium measurement (moles/volume) 4.1 mmol/L 3.6-5.0 Serum or plasma chloride measurement (moles/volume) 103 mmol/L 98-107 Carbon dioxide 24 mmol/L 21-32 Serum or plasma anion gap determination (moles/volume) 9 mmol/L 5-14 Serum or plasma urea nitrogen measurement (mass/volume) 9 mg/dL 7-18 Serum or plasma creatinine measurement (mass/volume) 0.66 mg/dL 0.60-1.30 Serum or plasma urea nitrogen/creatinine mass ratio 14 NRG Serum or plasma creatinine measurement with calculation of estimated glomerular filtration rate > NRG Serum or plasma glucose measurement (mass/volume) 106 mg/dL 70-105 Serum or plasma calcium measurement (mass/volume) 9.0 mg/dL 8.5-10.1 Hemoglobin A1c - 08/23/18 05:20 Blood hemoglobin A1C measurement (mass/volume) 5.2 % 4.0-5.6 MEAN BLOOD GLUCOSE 103 % <=126 Methicillin resistant Staphylococcus aureus (MRSA) screening culture - 08/24/18 12:30 Methicillin resistant Staphylococcus aureus (MRSA) screening culture NEG NRG Complete blood count (CBC) with automated white blood cell (WBC) differential - 09/25/18 15:18 Blood leukocytes automated count (number/volume) 6.5 10*3/uL 4.3-11.0 Blood erythrocytes automated count (number/volume) 4.92 10*6/uL 4.35-5.85 Venous blood hemoglobin measurement (mass/volume) 14.4 g/dL 11.5-16.0 Blood hematocrit (volume fraction) 44 % 35-52 Automated erythrocyte mean corpuscular volume 89 [foz_us] 80-99 Automated erythrocyte mean corpuscular hemoglobin (mass per erythrocyte) 29 pg 25-34 Automated erythrocyte mean corpuscular hemoglobin concentration measurement (mass/volume) 33 g/dL 32-36 Automated erythrocyte distribution width ratio 13.3 % 10.0- 14.5 Automated blood platelet count (count/volume) 358 10*3/uL 130-400 Automated blood platelet mean volume measurement 9.4 [foz_us] 7.4-10.4 Automated blood neutrophils/100 leukocytes 56 % 42-75 Automated blood lymphocytes/100 leukocytes 31 % 12-44 Blood monocytes/100 leukocytes 12 % 0-12 Automated blood eosinophils/100 leukocytes 1 % 0-10 Automated blood basophils/100 leukocytes 0 % 0-10 Blood neutrophils automated count (number/volume) 3.7 10*3 1.8-7.8 Blood lymphocytes automated count (number/volume) 2.0 10*3 1.0-4.0 Blood monocytes automated count (number/volume) 0.8 10*3 0.0- 1.0 Automated eosinophil count 0.1 10*3/uL 0.0-0.3 Automated blood basophil count (count/volume) 0.0 10*3/uL 0.0-0.1 Comprehensive metabolic panel - 09/25/18 15:18 Serum or plasma sodium measurement (moles/volume) 137 mmol/L 135-145 Serum or plasma potassium measurement (moles/volume) 4.2 mmol/L 3.6-5.0 Serum or plasma chloride measurement (moles/volume) 103 mmol/L 98-107 Carbon dioxide 22 mmol/L 21-32 Serum or plasma anion gap determination (moles/volume) 12 mmol/L 5-14 Serum or plasma urea nitrogen measurement (mass/volume) 17 mg/dL 7-18 Serum or plasma creatinine measurement (mass/volume) 0.76 mg/dL 0.60-1.30 Serum or plasma urea nitrogen/creatinine mass ratio 22 NRG Serum or plasma creatinine measurement with calculation of estimated glomerular filtration rate > NRG Serum or plasma glucose measurement (mass/volume) 115 mg/dL 70-105 Serum or plasma calcium measurement (mass/volume) 9.6 mg/dL 8.5-10.1 Serum or plasma total bilirubin measurement (mass/volume) 0.4 mg/dL 0.1-1.0 Serum or plasma alkaline phosphatase measurement (enzymatic activity/volume) 97 U/L 40-136 Serum or plasma aspartate aminotransferase measurement (enzymatic activity/volume) 43 U/L 5-34 Serum or plasma alanine aminotransferase measurement (enzymatic activity/volume) 47 U/L 0-55 Serum or plasma protein measurement (mass/volume) 7.0 g/dL 6.4-8.2 Serum or plasma albumin measurement (mass/volume) 3.8 g/dL 3.2-4.5 CALCIUM CORRECTED 9.8 mg/dL 8.5-10.1 Encounters ACCT No. Visit Date/Time Discharge Status Pt. Type Provider Facility Loc./Unit Complaint 01/201711/15/2018 10:25:12 11/15/2018 23:59:59 CLS Outpatient [id number] 01/14/2016 15:15:06 01/14/2016 23:59:59 CLS Outpatient [id number] 09/25/2018 15:02:00 09/25/2018 23:59:59 CLS Outpatient JODEE GURROLA DO [facility] LAB FATIGUE,DIARRHEA [id number] 09/22/2018 10:11:00 09/22/2018 23:59:59 CLS Outpatient JODEE GURROLA DO S [facility] RAD COUGH [id number] 08/22/2018 13:30:00 08/24/2018 16:20:00 DIS Inpatient JODEE GURROLA DO S [facility] 4TH HEAD INJURY;INTERMITTENT CONFUSION [id number] 11/08/2017 08:14:00 11/08/2017 23:59:59 CLS Outpatient JODEE GURROLA DO [facility] RAD MEMORY LOSS [id number] 06/30/2017 09:43:00 06/30/2017 23:59:59 CLS Outpatient EDI CHANDLER MEAT CLERK [facility] RAD R06.02 [id number] 04/29/2017 20:27:00 04/29/2017 22:45:00 DIS Emergency ASTRID JENNIFER REED [facility] ER SOB [id number] 07/30/2016 19:40:00 07/30/2016 21:48:00 DIS Emergency ASTRID DOJENNIFER [facility] ER SOA [id number] 06/08/2016 11:34:00 06/08/2016 23:59:59 CLS Outpatient DENIS CHAWLA MEAT CLERK [facility] CARD CHEST PAIN [id number] 12/17/2015 08:48:00 12/17/2015 11:46:00 DIS Outpatient DANIEL CABA MD [facility] SDC HISTORY COLON CANCER [id number] 12/16/2015 06:36:00 12/16/2015 12:06:00 DIS Outpatient DANIEL CABA MD [facility] PREOP HISTORY COLON CANCER [id number] 03/25/2015 00:09:00 03/25/2015 23:59:59 CLS Preadmit KRISTINA BAY MD [facility] ONC [id number] 01/07/2015 10:53:00 03/24/2015 00:01:00 DIS Outpatient KRISTINA BAY MD [facility] ONC [id number] 12/31/2014 11:15:00 12/31/2014 23:59:59 CLS KRISTINA Levi MD [facility] RAD CANCER OF COLON [id number] 12/05/2014 07:16:00 12/09/2014 18:05:00 DIS Inpatient DANIEL CABA MD [facility] SURGICAL TUBUILLIOUS ADENOMA-COLON MASS [id number] 12/04/2014 09:11:00 12/04/2014 23:59:59 CLS Outpatient ROSALES PONCE, DANIEL [facility] PREOP TUBUILLIOUS ADENOMA-COLON MASS [id number] 05/18/2013 18:30:00 05/18/2013 21:05:00 DIS Emergency ISIDORO CANTRELL [facility] ER R TOE INJ [id number] 01/22/2011 07:56:00 Document Registration
--- NOTE | 2018-12-16 09:22 | Diagnostic Imaging Report ---
EXAM: SHOULDER, RIGHT, 3 VIEWS INDICATION: Fall. Right shoulder pain COMPARISON: Chest radiograph 09/22/2018 FINDINGS: Moderately angulated fracture of the distal right clavicle. Normal alignment of the glenohumeral joint. Calcified granuloma in the right lung. IMPRESSION: Mildly angulated fracture of the distal right clavicle. Dictated by: Dictated on workstation # [id number]
[2018-12-16 10:55] LABS: BASOPHILS % (AUTO) 0 % (0-10); EOSINOPHILS % (AUTO) 0 % (0-10); HEMATOCRIT 40 % (35-52); HEMOGLOBIN 12.9 G/DL (11.5-16.0); LYMPHOCYTES # (AUTO) 1.7 X 10^3 (1.0-4.0); LYMPHOCYTES % (AUTO) 18 % (12-44); MEAN CORPUSCULAR HEMOGLOBIN 28 PG (25-34); MEAN CORPUSCULAR HGB CONC 33 G/DL (32-36); MEAN CORPUSCULAR VOLUME 87 FL (80-99); MONOCYTES # (AUTO) 1.1 X 10^3 (0.0-1.0); MONOCYTES % (AUTO) 12 % (0-12); NEUTROPHILS # (AUTO) 6.7 X 10^3 (1.8-7.8); NEUTROPHILS % (AUTO) 70 % (42-75); PLATELET COUNT 433 10^3/uL (130-400); RED CELL DISTRIBUTION WIDTH 13.5 % (10.0-14.5); WHITE BLOOD COUNT 9.5 10^3/uL (4.3-11.0)
[2018-12-16 11:11] LABS: BILIRUBIN,URINE NEGATIVE (NEGATIVE); CLARITY,URINE CLEAR; COLOR,URINE YELLOW; GLUCOSE, URINE (UA) NEGATIVE (NEGATIVE); KETONES,URINE NEGATIVE (NEGATIVE); LEUKOCYTE ESTERASE ,URINE NEGATIVE (NEGATIVE); NITRITE,URINE NEGATIVE (NEGATIVE); PH,URINE 8 (5-9); PROTEIN,URINE NEGATIVE (NEGATIVE); UROBILINOGEN,URINE NORMAL (NORMAL)
[2018-12-16 11:14] LABS: BUN/CREATININE RATIO 15; CALCIUM 9.7 MG/DL (8.5-10.1); CARBON DIOXIDE 26 MMOL/L (21-32); CHLORIDE 104 MMOL/L (98-107); CREATININE SERUM 0.67 MG/DL (0.60-1.30); GFR ESTIMATED > 60; GLUCOSE 106 MG/DL (70-105); POTASSIUM 3.9 MMOL/L (3.6-5.0); SODIUM 140 MMOL/L (135-145)
[2018-12-16 11:21] LABS: BACTERIA,URINE NEGATIVE /HPF; SQUAMOUS EPITHELIAL CELL,UR RARE /HPF
--- NOTE | 2018-12-16 11:39 | ED Fall/Injury ---
General Chief Complaint: Trauma-Non Activation Stated Complaint: FALL Nursing Triage Note: PT BROUGHT IN BY EMS FROM [facility] WITH COMPLAINT OF FALL. 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 STATES THEY DO CHECKS AT 2 AM AND 7AM, STATES PT WAS IN BED AT 2AM. PT DOES NOT REMEMBER FALLING. COMPLAINING OF RIGHT ARM PAIN. PT HAS OLD BRUISE ON RIGHT UPPER CHEST. Source: patient Exam Limitations: no limitations History of Present Illness Date Seen by Provider: Dec 16, 2018 Time Seen by Provider: 08:13 Initial Comments This 88-year-old woman presents to the emergency room via EMS after being found on the floor at her assisted living facility [facility]. Patient reports that she has been on the ground for many hours. Staff reported she was in her chair is 02:00 without any problems. Patient has no complaints of new pain but has some pain in her right shoulder from a prior fall. Patient denies hitting her head. There is no evidence of head injury. There is a yellowish bruising near the right shoulder on the anterior chest the appearance of which would suggest an older injury. Patient's son presents to the emergency room later and reports she has had 3 falls this year. Allergies and Home Medications Allergies Coded Allergies: No Known Drug Allergies (Verified , 12/17/15) Home Medications Cholecalciferol (Vitamin D3) 1,000 Unit Capsule, 1,000 UNIT PO DAILY, (Reported) [place] 3 Polyunsat Fatty Acids 1,000 Mg Cap, 1,000 MG PO DAILY, (Reported) Vitamin E Acetate 400 Unit Capsule, 400 UNIT PO DAILY, (Reported) Patient Home Medication List Home Medication List Reviewed: Yes Review of Systems Review of Systems Constitutional: no symptoms reported Eyes: No Symptoms Reported Ears, Nose, Mouth, Throat: no symptoms reported Respiratory: no symptoms reported Cardiovascular: no symptoms reported Gastrointestinal: no symptoms reported Genitourinary: no symptoms reported Musculoskeletal: see HPI Skin: see HPI Psychiatric/Neurological: Other (dementia) Past Ctmvrni-Guewuw-Ngzrcv Hx Past Med/Social Hx: Reviewed and Corrections made Patient Social History Alcohol Use: Denies Use Recreational Drug Use: No Smoking Status: Former Smoker 2nd Hand Smoke Exposure: No Recent Foreign Travel: No Contact w/Someone Who Travel: No Recent Infectious Disease Expo: No Recent Hopitalizations: No Immunizations Up To Date Date of Pneumonia Vaccine: Apr 10, 2015 Date of Influenza Vaccine: Apr 10, 2018 Seasonal Allergies Seasonal Allergies: No Past Medical History Surgeries: Yes (ABDOMINAL /BOWEL SURGERY FOR CANCER) Abdominal, Bowel Surgery Respiratory: No Cardiac: No Neurological: Yes Dementia : No Reproductive Disorders: No 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 Sexually Transmitted Disease: No HIV/AIDS: No Genitourinary: No Gastrointestinal: Yes (HX COLON CA) Musculoskeletal: No Endocrine: No HEENT: Yes Cataract Cancer: Yes Colon Did You Recieve Any Treatments: Yes What Type of Treatment Did You: Surgical Intervention Psychosocial: No Integumentary: No Blood Disorders: No Family Medical History Cardiovascular disease 19 MOTHER G8 BROTHER G8 SISTER Hypertension 19 FATHER 19 MOTHER G8 BROTHER G8 SISTER Respiratory disorder G8 BROTHER No Pertinent Family Hx Physical Exam Vital Signs Vital Signs - First Documented Capillary Refill : Less Than 3 Seconds Height, Weight, BMI Height: 5'0.00" Weight: 109lbs. 0.0oz. [id number]; 21.3 BMI Method:Stated General Appearance: WD/WN, no apparent distress, thin HEENT: PERRL/EOMI, normal ENT inspection, pharynx normal, other (nontender. No evidence of injury) Neck: non-tender, supple, normal inspection Cardiovascular: regular rate, rhythm, no edema, no murmur Respiratory: lungs clear, normal breath sounds, no respiratory distress, no accessory muscle use Gastrointestinal: normal bowel sounds, non tender, soft Extremities: non-tender, normal inspection, no pedal edema, other (no pain with palpation of the hips or pelvis. No pain with rotation of the hips. Tenderness over the right anterior shoulder. 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, no motor/sensory deficits, alert, normal mood/affect, other (demented presently at baseline) Skin: normal color, warm/dry, ecchymosis (right shoulder and anterior chest) Progress/Results/Core Measures Results/Orders Lab Results Laboratory Tests Test 12/16/18 10:47 12/16/18 10:54 Range/Units White Blood Count 9.5 4.3-11.0 10^3/uL Red Blood Count 4.55 4.35-5.85 10^6/uL Hemoglobin 12.9 11.5-16.0 G/DL Hematocrit 40 35-52 % Mean Corpuscular Volume 87 80-99 FL Mean Corpuscular Hemoglobin 28 25-34 PG Mean Corpuscular Hemoglobin Concent 33 32-36 G/DL Red Cell Distribution Width 13.5 10.0-14.5 % Platelet Count 433 H 130-400 10^3/uL Mean Platelet Volume 9.0 7.4-10.4 FL Neutrophils (%) (Auto) 70 42-75 % Lymphocytes (%) (Auto) 18 12-44 % Monocytes (%) (Auto) 12 0-12 % Eosinophils (%) (Auto) 0 0-10 % Basophils (%) (Auto) 0 0-10 % Neutrophils # (Auto) 6.7 1.8-7.8 X 10^3 Lymphocytes # (Auto) 1.7 1.0-4.0 X 10^3 Monocytes # (Auto) 1.1 H 0.0-1.0 X 10^3 Eosinophils # (Auto) 0.0 0.0-0.3 10^3/uL Basophils # (Auto) 0.0 0.0-0.1 10^3/uL Sodium Level 140 135-145 MMOL/L Potassium Level 3.9 3.6-5.0 MMOL/L Chloride Level 104 98-107 MMOL/L Carbon Dioxide Level 26 21-32 MMOL/L Anion Gap 10 5-14 MMOL/L Blood Urea Nitrogen 10 7-18 MG/DL Creatinine 0.67 0.60-1.30 MG/DL Estimat Glomerular Filtration Rate > 60 BUN/Creatinine Ratio 15 Glucose Level 106 H 70-105 MG/DL Calcium Level 9.7 8.5-10.1 MG/DL Urine Color YELLOW Urine Clarity CLEAR Urine pH 8 5-9 Urine Specific [place] 1.010 L 1.016-1.022 Urine Protein NEGATIVE NEGATIVE Urine Glucose (UA) NEGATIVE NEGATIVE Urine Ketones NEGATIVE NEGATIVE Urine Nitrite NEGATIVE NEGATIVE Urine Bilirubin NEGATIVE NEGATIVE Urine Urobilinogen NORMAL NORMAL MG/DL Urine Leukocyte Esterase NEGATIVE NEGATIVE Urine RBC (Auto) NEGATIVE NEGATIVE Urine RBC NONE /HPF Urine WBC NONE /HPF Urine Squamous Epithelial Cells RARE /HPF Urine Crystals NONE /LPF Urine Bacteria NEGATIVE /HPF Urine Casts NONE /LPF Urine Mucus NEGATIVE /LPF Urine Culture Indicated NO My Orders Orders - CORTES BATISTA MD Shoulder, Right, 3 Views (12/16/18 08:58) Ua Culture If Indicated (12/16/18 08:58) Basic Metabolic Panel (12/16/18 10:44) Cbc With Automated Diff (12/16/18 10:44) Vital Signs/I&O 12/16/18 12/16/18 12/16/18 08:07 08:07 12:00 Temp 96.3 96.3 Pulse 84 84 72 Resp 17 17 17 B/P (MAP) 130/66 (87) 130/66 (87) 109/49 (69) Pulse Ox 96 96 94 O2 Delivery Room Air Room Air Room Air Blood Pressure Mean: 87 Progress Progress Note : Progress Note The only suggestion of injury on exam was the right shoulder. X-ray revealed a distal clavicle fracture. Based on the bruising on the skin, this is estimated to be at least several days old. Sling was provided for comfort. Labs and urinalysis were unremarkable. Patient was ultimately discharged back to the assisted living facility with her son. Diagnostic Imaging Diagonstic Imaging: Xray Plain Films/CT/US/NM/MRI: other (right shoulder) Comments Right shoulder x-ray viewed by me and report reviewed. See report below: NAME: STERLING ZAMORA [facility] REC#: [id number] PT STATUS: REG ER : 1930 PHYSICIAN: CORTES BATISTA MD ADMIT DATE: 12/16/18/ER Draft Date of Exam:12/16/18 SHOULDER, RIGHT, 3 VIEWS EXAM: SHOULDER, RIGHT, 3 VIEWS INDICATION: Fall. Right shoulder pain COMPARISON: Chest radiograph 09/22/2018 FINDINGS: Moderately angulated fracture of the distal right clavicle. Normal alignment of the glenohumeral joint. Calcified granuloma in the right lung. IMPRESSION: Mildly angulated fracture of the distal right clavicle. Dictated on workstation # [id number] Dict: 12/16/18917 Trans: 12/16/18 0922 [facility] [id number] Interpreted by: ZAC AYALA MD Departure Impression Primary Impression: Right clavicle fracture Qualified Codes: S42.034A - Nondisplaced fracture of lateral end of right clavicle, initial encounter for closed fracture Additional Impression: Fall on same level Qualified Codes: W18.30XA - Fall on same level, unspecified, initial encounter Disposition: 01 HOME, SELF-CARE Condition: Improved Departure-Patient Inst. Decision time for Depature: 11:30 Referrals: JODEE GURROLA DO (PCP/Family) Primary Care Physician DAYLIN GODINEZ MD Patient Instructions: Clavicle Fracture Add. Discharge Instructions: Use the sling as much as possible until clavicle is healed. Follow-up with Dr. Godinez or another orthopedic surgeon of your choice as soon as possible. Follow-up with your primary care provider soon as possible. You may take Tylenol (acetaminophen) up to 650 mg every 6 hours as needed for pain or any other alternative pain medication as prescribed by your primary care doctor. Return to care with any further problems or concerns. All discharge instructions reviewed with patient and/or family. Voiced understanding. Copy Copies To 1: JODEE GURROLA JOSHUA T MD Dec 16, 2018 11:39
[2018-12-16 12:00] VITALS: BP 109/49
== END 2018-12-16 12:00 | disposition home or self-care (01) ==
LOC: EDUNIT# 08:12 → ER 08:13
DX: S42.034A Nondisplaced fracture of lateral end of right clavicle, initial encounter for closed fracture (principal); F03.90 Unspecified dementia, unspecified severity, without behavioral disturbance, psychotic disturbance, mood disturbance, and anxiety; Z87.891 Personal history of nicotine dependence; Z85.038 Personal history of other malignant neoplasm of large intestine; Z82.49 Family history of ischemic heart disease and other diseases of the circulatory system; Z98.890 Other specified postprocedural states; Z91.81 History of falling; W18.30XA Fall on same level, unspecified, initial encounter
CPT/HCPCS: 36415; 73030; 80048; 81000; 85025

== ENCOUNTER → 2018-12-19 | Outpatient (CLI) | payer MEDICARE, MEDICAID | LOC: ORTHO 12:59 | PROVIDERS: ATTEND Orthopaedic Surgery | DX: S42.034A Nondisplaced fracture of lateral end of right clavicle, initial encounter for closed fracture (principal); W18.30XA Fall on same level, unspecified, initial encounter | CPT/HCPCS: 99203 ==

== ENCOUNTER 2019-06-23 00:16 | Emergency (ER) | payer MEDICARE, MEDICAID ==
[~2019-06-23] VITALS: Ht 167 cm; Wt 70.0 kg
[2019-06-23] MEDS ORDERED: ANTACID SUSP 30 ML UDC (MYLANTA) PO ONE (00:30)
[2019-06-23] MEDS ORDERED: LIDOCAINE 2% VISCOUS 15 ML UDC PO ONE (00:30)
[2019-06-23] MEDS ORDERED: PANTOPRAZOLE 40 MG (PROTONIX) VIAL IV ONE (00:30)
[2019-06-23] MEDS ORDERED: NS IV 1000 ML 1,000 ML IV SCH (00:31)
--- NOTE | 2019-06-23 00:31 | ED Abdominal Pain ---
General Stated Complaint: ABD PAIN Source of Information: Patient, EMS Exam Limitations: Other (dementia/delirium) History of Present Illness Date Seen by Provider: Jun 23, 2019 Time Seen by Provider: 00:12 Initial Comments Patient arrives the ER from [facility] via EMS with chief complaint that she has been complaining of abdominal pain for the past month. Her primary care provider had provided her some laxatives to help her have a bowel movement and acid in going to the bathroom a lot. There is mention of a fever in nursing report so I suspect she might of had a UTI but because of her incontinence that has not been ill to collect a urinalysis. Patient has not had anything for pain and says it only hurts if someone pushes on her belly. Staff also noted that she was acting more confused trying to pack her bags to leave and doing bizarre behaviors which is very unlike her. No coughing, chills, vomiting, nausea. Allergies and Home Medications Allergies Coded Allergies: No Known Drug Allergies (Verified , 12/17/15) Home Medications Cholecalciferol (Vitamin D3) 1,000 Unit Capsule, 1,000 UNIT PO DAILY, (Reported) [place] 3 Polyunsat Fatty Acids 1,000 Mg Cap, 1,000 MG PO DAILY, (Reported) Vitamin E Acetate 400 Unit Capsule, 400 UNIT PO DAILY, (Reported) Patient Home Medication List Home Medication List Reviewed: Yes Review of Systems Review of Systems Constitutional: No chills, No fever, No malaise EENTM: No Blurred Vision, No Double Vision Respiratory: Denies Cough, Denies Shortness of Air Cardiovascular: Denies Chest Pain, Denies Edema Gastrointestinal: Denies Constipated, Denies Diarrhea, Denies Nausea Genitourinary: Denies Burning, Denies Discharge Musculoskeletal: No back pain, No joint pain Skin: No pruritus, No rash Psychiatric/Neurological: Denies Headache, Denies Numbness Past Ytzcrvn-Bwxiou-Ikvnyb Hx Patient Social History Alcohol Use: Denies Use Recreational Drug Use: No Smoking Status: Never a Smoker 2nd Hand Smoke Exposure: No Recent Hopitalizations: No Immunizations Up To Date Date of Pneumonia Vaccine: Apr 10, 2015 Date of Influenza Vaccine: Apr 10, 2018 Seasonal Allergies Seasonal Allergies: No Past Medical History Surgeries: Yes (ABDOMINAL /BOWEL SURGERY FOR CANCER) Abdominal, Bowel Surgery Respiratory: No Cardiac: No Neurological: Yes Dementia 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 0.0oz. 49.175754cn; 21.3 BMI Method:Stated General Appearance: WD/WN, no apparent distress HEENT: normal ENT inspection, pharynx normal Neck: full range of motion, normal inspection Respiratory: lungs clear, normal breath sounds, no respiratory distress, no accessory muscle use Cardiovascular: normal peripheral pulses, regular rate, rhythm Peripheral Pulses: 2+ Radial Pulses (R), 2+ Radial Pulses (L) Gastrointestinal: normal bowel sounds, soft, no organomegaly, tenderness (right-sided abdomen) Neurologic/Psychiatric: alert, normal mood/affect, other (oriented to person and place but not time) Skin: normal color, warm/dry Progress/Results/Core Measures Results/Orders Lab Results Laboratory Tests Test 06/23/19 00:35 06/23/19 00:54 Range/Units Urine Color YELLOW Urine Clarity CLEAR Urine pH 6.0 5-9 Urine Specific [place] 1.010 L 1.016-1.022 Urine Protein NEGATIVE NEGATIVE Urine Glucose (UA) NEGATIVE NEGATIVE Urine Ketones NEGATIVE NEGATIVE Urine Nitrite NEGATIVE NEGATIVE Urine Bilirubin NEGATIVE NEGATIVE Urine Urobilinogen 0.2 < = 1.0 MG/DL Urine Leukocyte Esterase NEGATIVE NEGATIVE Urine RBC (Auto) NEGATIVE NEGATIVE Urine RBC NONE /HPF Urine WBC NONE /HPF Urine Squamous Epithelial Cells RARE /HPF Urine Crystals NONE /LPF Urine Bacteria NEGATIVE /HPF Urine Casts NONE /LPF Urine Mucus LARGE H /LPF Urine Culture Indicated NO White Blood Count 8.3 4.3-11.0 10^3/uL Red Blood Count 4.01 L 4.35-5.85 10^6/uL Hemoglobin 10.7 L 11.5-16.0 G/DL Hematocrit 34 L 35-52 % Mean Corpuscular Volume 85 80-99 FL Mean Corpuscular Hemoglobin 27 25-34 PG Mean Corpuscular Hemoglobin Concent 31 L 32-36 G/DL Red Cell Distribution Width 13.5 10.0-14.5 % Platelet Count 541 H 130-400 10^3/uL Mean Platelet Volume 9.2 7.4-10.4 FL Neutrophils (%) (Auto) 52 42-75 % Lymphocytes (%) (Auto) 30 12-44 % Monocytes (%) (Auto) 15 H 0-12 % Eosinophils (%) (Auto) 3 0-10 % Basophils (%) (Auto) 0 0-10 % Neutrophils # (Auto) 4.3 1.8-7.8 X 10^3 Lymphocytes # (Auto) 2.5 1.0-4.0 X 10^3 Monocytes # (Auto) 1.3 H 0.0-1.0 X 10^3 Eosinophils # (Auto) 0.2 0.0-0.3 10^3/uL Basophils # (Auto) 0.0 0.0-0.1 10^3/uL Sodium Level 139 135-145 MMOL/L Potassium Level 4.2 3.6-5.0 MMOL/L Chloride Level 100 98-107 MMOL/L Carbon Dioxide Level 27 21-32 MMOL/L Anion Gap 12 5-14 MMOL/L Blood Urea Nitrogen 7 7-18 MG/DL Creatinine 0.71 0.60-1.30 MG/DL Estimat Glomerular Filtration Rate > 60 BUN/Creatinine Ratio 10 Glucose Level 107 H 70-105 MG/DL Calcium Level 9.2 8.5-10.1 MG/DL Corrected Calcium 9.8 8.5-10.1 MG/DL Total Bilirubin 0.4 0.1-1.0 MG/DL Aspartate Amino Transf (AST/SGOT) 25 5-34 U/L Alanine Aminotransferase (ALT/SGPT) 15 0-55 U/L Alkaline Phosphatase 106 40-136 U/L Total Protein 7.0 6.4-8.2 GM/DL Albumin 3.3 3.2-4.5 GM/DL Micro Results Microbiology 06/23/19 Influenza Types A,B Antigen (ERUM) - Final, Complete My Orders Orders - LIVAN MORALES Cbc With Automated Diff (06/23/19 00:27) Comprehensive Metabolic Panel (06/23/19 00:27) Ua Culture If Indicated (06/23/19 00:27) Straight Cath For Spec.-Adult (06/23/19 00:27) Ed Iv/Invasive Line Start (06/23/19 00:27) Lidocaine 2% Viscous 15 Ml (Xylocaine Vi (06/23/19 00:30) Antacid Suspension (Mylanta Suspension (06/23/19 00:30) Pantoprazole Injection (Protonix Injecti (06/23/19 00:30) Ed Iv/Invasive Line Start (06/23/19 00:31) Ns Iv 1000 Ml (Sodium Chloride 0.9%) (06/23/19 00:31) Ct Abdomen/Pelvis W (06/23/19 00:31) Iohexol Injection (Omnipaque 350 Mg/Ml 1 (06/23/19 01:45) Received Contrast (Hold Metformin- Contr (06/23/19 01:45) Ns (Ivpb) (Sodium Chloride 0.9% Ivpb Bag (06/23/19 01:45) Influenza A And B Antigens (06/23/19 02:11) Medications Given in ED Current Medications Medications Dose Ordered Sig/Katie Route Start Time Stop Time Status Last Admin Dose Admin Al Hydrox/Mg Hydrox/Simethicone 30 ml ONCE ONCE PO 06/23/19 00:30 06/23/19 00:31 DC 06/23/19 00:59 30 ML Iohexol 100 ml ONCE ONCE IV 06/23/19 01:45 06/23/19 01:46 DC 06/23/19 02:04 68 ML Lidocaine HCl 15 ml ONCE ONCE PO 06/23/19 00:30 06/23/19 00:31 DC 06/23/19 00:59 15 ML Pantoprazole 40 mg ONCE ONCE IV 06/23/19 00:30 06/23/19 00:31 DC 06/23/19 00:59 40 MG Sodium Chloride 100 ml ONCE ONCE IV 06/23/19 01:45 06/23/19 01:46 DC 06/23/19 02:04 80 ML Progress Progress Note : Time: 03:06 Progress Note Patient is not having any pain as long as nobody palpated abdomen. She is afebrile, aseptic vital signs and a benign abdominal exam. Laboratory workup was unremarkable. No evidence of a UTI. Her CT of her abdomen and pelvis does demonstrate a large pelvic cystic mass possible ovarian in origin. This can be further worked up outpatient with her primary care doctor as appropriate. Diagnostic Imaging Diagonstic Imaging: CT (with IV contrast) Plain Films/CT/US/NM/MRI: abdomen, pelvis Comments Large pelvic cystic mass possibly ovarian in origin. 3 mm pulmonary nodule right lower lobe. No bowel obstruction. Reviewed: Reviewed [place] Study, Reviewed by Me Departure Impression Primary Impression: Abdominal pain Qualified Codes: R10.9 - Unspecified abdominal pain Additional Impression: Pelvic mass in female Disposition: 01 HOME, SELF-CARE Condition: Stable Departure-Patient Inst. Decision time for Depature: 03:08 Referrals: JODEE GURROLA DO (PCP/Family) Primary Care Physician Patient Instructions: Acute Abdomen (Belly Pain), Adult (DC) Add. Discharge Instructions: Tuesday call primary care doctor and request follow-up of pelvic cystic mass. Tylenol 650 mg every 6 hours as needed for pain. Copy Copies To 1: JODEE GURROLA TITUS J Jun 23, 2019 00:31 POS
[2019-06-23 01:06] LABS: BILIRUBIN,URINE NEGATIVE (NEGATIVE); CLARITY,URINE CLEAR; COLOR,URINE YELLOW; GLUCOSE, URINE (UA) NEGATIVE (NEGATIVE); KETONES,URINE NEGATIVE (NEGATIVE); LEUKOCYTE ESTERASE ,URINE NEGATIVE (NEGATIVE); NITRITE,URINE NEGATIVE (NEGATIVE); PROTEIN,URINE NEGATIVE (NEGATIVE)
[2019-06-23 01:07] LABS: BASOPHILS % (AUTO) 0 % (0-10); EOSINOPHILS # (AUTO) 0.2 10^3/uL (0.0-0.3); EOSINOPHILS % (AUTO) 3 % (0-10); HEMATOCRIT 34 % (35-52); HEMOGLOBIN 10.7 G/DL (11.5-16.0); LYMPHOCYTES # (AUTO) 2.5 X 10^3 (1.0-4.0); LYMPHOCYTES % (AUTO) 30 % (12-44); MEAN CORPUSCULAR HEMOGLOBIN 27 PG (25-34); MEAN CORPUSCULAR HGB CONC 31 G/DL (32-36); MEAN CORPUSCULAR VOLUME 85 FL (80-99); MEAN PLATELET VOLUME 9.2 FL (7.4-10.4); MONOCYTES # (AUTO) 1.3 X 10^3 (0.0-1.0); MONOCYTES % (AUTO) 15 % (0-12); NEUTROPHILS # (AUTO) 4.3 X 10^3 (1.8-7.8); NEUTROPHILS % (AUTO) 52 % (42-75); PLATELET COUNT 541 10^3/uL (130-400); RED CELL DISTRIBUTION WIDTH 13.5 % (10.0-14.5); WHITE BLOOD COUNT 8.3 10^3/uL (4.3-11.0)
[2019-06-23 01:23] LABS: ALANINE AMINOTRANSFERASE 15 U/L (0-55); ALBUMIN 3.3 GM/DL (3.2-4.5); ALKALINE PHOSPHATASE 106 U/L (40-136); BILIRUBIN,TOTAL 0.4 MG/DL (0.1-1.0); BUN/CREATININE RATIO 10; CALCIUM 9.2 MG/DL (8.5-10.1); CARBON DIOXIDE 27 MMOL/L (21-32); CHLORIDE 100 MMOL/L (98-107); CREATININE SERUM 0.71 MG/DL (0.60-1.30); GFR ESTIMATED > 60; GLUCOSE 107 MG/DL (70-105); POTASSIUM 4.2 MMOL/L (3.6-5.0); SODIUM 139 MMOL/L (135-145)
[2019-06-23 01:25] LABS: BACTERIA,URINE NEGATIVE /HPF; SQUAMOUS EPITHELIAL CELL,UR RARE /HPF
--- NOTE | 2019-06-23 01:40 | NUR ---
pt pulled out iv line accidently
[2019-06-23] MEDS ORDERED: IOHEXOL 350 MG/ML 100 ML (OMNIPAQUE 350) VIAL IV ONE (01:45)
[2019-06-23] MEDS ORDERED: NS 100 ML (IVPB) BAG IV ONE (01:45)
[2019-06-23] MEDS ORDERED: HOLD METFORMIN - RECEIVED CONTRAST 20 ML VIAL IV SCH (01:45)
--- NOTE | 2019-06-23 03:19 | NUR ---
PT LEFT ED WITH [facility] STAFF AMBULATORY IN STABLE CONDITION
--- NOTE | 2019-06-23 07:16 | Diagnostic Imaging Report ---
PROCEDURE: CT abdomen and pelvis with contrast. TECHNIQUE: Multiple contiguous axial images were obtained through the abdomen and pelvis after administration of intravenous contrast. Auto Exposure Controls were utilized during the CT exam to meet ALARA standards for radiation dose reduction. INDICATION: Confusion. Evaluate for urinary tract infection. FINDINGS: There are couple of tiny micronodules within the right lower lobe. There is no infiltrate or evidence of an effusion. The liver demonstrates no evidence of focal intrahepatic abnormality. The patient is status post prior cholecystectomy. There is no abnormal intrahepatic biliary dilatation. There is mild prominence of the common bile duct. The pancreas appears unremarkable. Spleen normal in size. There is no adrenal mass. The kidneys appear nonobstructed. There is a large cystic mass within the right abdomen and pelvis that measures up to 12 x 8 x 10 cm. This does have some regions of peripheral wall thickening. Primary considerations would be that of an ovarian origin. There is also a questioned fluid collection or additional cystic mass along the inferior aspect of the duodenal sweep that is best demonstrated on coronal images and measures up to 4.6 x 2.2 cm. There are no findings of bowel obstruction. Diverticulosis is present. There are no findings of diverticulitis. The patient appears status post prior hysterectomy. Urinary bladder unremarkable by CT. Bones are osteopenic. There is no acute or suspicious osseous abnormality. IMPRESSION: 1. Large pelvic cystic mass which would be favored to possibly be ovarian in etiology. A malignant process cannot be excluded. 2. There is also a questioned cystic mass or collection along the inferior aspect of the duodenal sweep. 3. No findings of bowel obstruction. Uncomplicated diverticulosis is noted. 4. Previous cholecystectomy and hysterectomy. 5. Unremarkable CT appearance of the urinary bladder. There are no CT findings to suggest pyelonephritis. 6. Small right lower lobe pulmonary micronodules. Dictated by: Dictated on workstation # [id number]
[2019-06-23 07:24] VITALS: BP 131/83
== END 2019-06-23 03:22 | disposition home or self-care (01) ==
LOC: EDUNIT# 00:16 → ER 00:18
DX: R19.00 Intra-abdominal and pelvic swelling, mass and lump, unspecified site (principal); F03.90 Unspecified dementia, unspecified severity, without behavioral disturbance, psychotic disturbance, mood disturbance, and anxiety; Z85.038 Personal history of other malignant neoplasm of large intestine; Z82.49 Family history of ischemic heart disease and other diseases of the circulatory system
CPT/HCPCS: 36415; 51701; 74177; 80053; 81000; 85025; 87804; 96374